=== PATIENT | female | born 1940 | race Caucasian/White ===

== ENCOUNTER 2018-06-21 08:12 | Inpatient (IN) | payer MEDICARE, BC ==
[2018-06-21] VITALS (42 sets, daily range): BP systolic 56–155; BP diastolic 35–79; BMI 27.3
[~2018-06-21] VITALS: Ht 160 cm; Wt 80.9 kg
--- NOTE | ~2018-06-21 | HEMODYNAMI ---
PATIENT:LAZARO SUAREZ MEDICAL RECORD: [id number] : 38 LOCATION:D.CAT ADMISSION DATE: 06/21/18 Generatedon:06/21/201813:02 Patient name: LAZARO SUAREZ Patient #: [id number] SSN: : 1940 Date of study: 06/21/2018 Page: Of Hemodynamic Procedure Report Patient Data Patient Demographics Procedure consent was obtained First Name: LAZARO Gender: Female Last Name: DANIELA : 1940 Middle Initial: S Age: 77 year(s) Patient #: [id number] Race: Unknown Additional ID: [id number] Contact details [address]: [address] [place] [address] [place] State: [place] City: [facility] Zip code: [address] Past Medical History Allergies: No known allergies Admission Admission Data Admission Date: 06/21/2018 Admission Time: 8:12 Weight (lbs.): 167.55 Weight (kg.): 76 Lab Results Lab Result Date: 06/21/2018 Lab Result Time: 0:00 Biochemistry Name Units Result Min Max BUN mg/dl 16 --(---*)-- 7 18 Creatinine mg/dl 0.9 --(-*--)-- 0.6 1.3 CBC Name Units Result Min Max Hemoglobin g/dl 11.9 *-(----)-- 13.5 17.5 Procedure Procedure Types Cath Procedure Diagnostic Procedure C [facility] w/Coronaries Sedation Charges Moderate Sedation up to 15 minutes PCI Procedure Coronary Stent Coronary Stent Initial Coronary Stent Additional Procedure Description Procedure Date Procedure Date: 06/21/2018 Procedure Start Time: 12:36 Procedure End Time: 13:02 Procedure Staff Name Function Clayton Cameron MD Performing Physician Anuja Guerrero RT Monitor Connor Ward RN Nurse Ga Puga RT Scrub Ivon Pineda RN Exercise Science Instructor Procedure Data Cath Procedure Fluoroscopy Diagnostic fluoroscopy Total fluoroscopy Time: 9.4 time: 9.4 min min Diagnostic fluoroscopy Total fluoroscopy dose: dose: 1108 mGy 1108 mGy Contrast Material Contrast Material Type Amount (ml) Isovue 300 194 Entry Location Entry Primary Successful Side Size Upsize Upsize Entry Closure Succes sful Closure Location (Fr) 1 (Fr) 2 (Fr) Remarks Device Remarks Femoral Right 5 Fr 6 Fr Exoseal artery Short Estimated blood loss: 10 ml Diagnostic catheters Device Type Used For End Catheter Placement MULTIPACK Pigtail 5 Fr LV Angiography catheter MULTIPACK JL 4.0 5Fr Left Coronary catheter Angiography MULTIPACK 3DRC 5Fr Right Coronary catheter Angiography Procedure Complications No complications Procedure Medications Medication Administration Route Dosage 0.9% NaCl I.V. 100 ml/hr Oxygen etCO2 Nasal cannula 2 l/min Lidocaine 2% added to field 20 Heparin Flush Bag added to field 2 bags (1000units/500ml NS) Versed I.V. 2 mg Fentanyl I.V. 50 mcg Versed I.V. 1 mg Heparin Bolus I.V. 4000 units Integrilin (Bolus I.V. 6.8 ml 2mg/ml) Versed I.V. 1 mg Fentanyl I.V. 50 mcg Hemodynamics Rest HGB: 11.9 (g/dl) Heart Rate: 71 (bpm) Snapshots Pre Cath Intra NCS Post Cath Vital Signs Time Heart Resp SPO2 etCO2 NIBP (mmHg) Rhythm Pain Sedation Rate (ipm) (%) (mmHg) Status Level (bpm) 12:18:02 70 16 97 36 152/75(114) NSR 0 (11) 10(A) , No pain 12:22:20 65 14 97 32.7 148/74(117) NSR 0 (11) 10(A) , No pain 12:26:36 67 18 100 32.7 146/75(97) NSR 0 (11) 10(A) , No pain 12:30:54 70 11 97 33 127/69(92) NSR 0 (11) 10(A) , No pain 12:35:06 63 12 97 34.1 134/66(98) NSR 0 (11) 10(A) , No pain 12:39:20 68 14 96 13.4 126/69(100) NSR 0 (11) 10(A) , No pain 12:43:32 63 13 97 34.2 135/67(94) NSR 0 (11) 10(A) , No pain 12:47:48 67 15 97 13.4 132/62(93) NSR 0 (11) 10(A) , No pain 12:52:02 66 14 98 13.4 136/69(104) NSR 0 (11) 10(A) , No pain 12:56:14 66 11 98 28.1 150/76(119) NSR 0 (11) 10(A) , No pain 13:00:30 76 11 98 11.1 154/82(124) NSR 0 (11) 10(A) , No pain Medications Time Medication Route Dose Verified Delivered Reason Notes Effectiveness by by 12:25:56 0.9% NaCl I.V. 100 Clayton Ivon used for ml/hr Nisha Pineda global head advertiser solutions 12:26:05 Oxygen etCO2 2 Clayton Ivon used for Nasal l/min Nisha Pineda procedure cannula RN 12:26:10 Lidocaine 2% added 20ml Clayton Clayton for local to vial Nisha Cameron MD anesthetic field 12:26:16 Heparin Flush added 2 Clayton Clayton used for Bag to bags Nihsa Cameron MD procedure (1000units/500ml field NS) 12:32:25 Versed I.V. 2 mg Clayton Ivon for sedation Nisha Pineda RN 12:32:32 Fentanyl I.V. 50 Clayton Ivon for sedation mcg Nisha Pineda RN 12:38:14 Versed I.V. 1 mg Clayton Ivon for sedation Nisha Pineda RN 12:42:50 Integrilin I.V. 6.8 Clayton Ivon for waste d (Bolus 2mg/ml) ml Nisha Pineda anticoagulation 3.8mL RN 12:42:50 Heparin Bolus I.V. 4000 Clayton Ivon for verif ied units Nisha Pineda anticoagulation with Dr. GORDY Cameron 12:44:55 Versed I.V. 1 mg Clayton Ivon for sedation Nisha Pineda RN 12:54:52 Fentanyl I.V. 50 Clayton Ivon for sedation mcg Nisha Pineda funeral home makeup artist Log Time Note 11:45:22 Time tracking: Call back (After hours or weekends) 11:45:28 Plan of Care:Hemodynamics will remain stable., Cardiac rhythm will remain stable., Comfort level will be maintained., Respiratory function will remain adequate., Patient/ family verbilizes understanding of procedure., Procedure tolerated without complication., Recovers from procedure without complications.. 11:58:41 Anuja Counts RT(R) sent for patient. Start room use. 12:05:04 Lab Result : BUN 16 mg/dl 12:05:04 Lab Result : Creatinine 0.9 mg/dl 12:05:04 Lab Result : Hemoglobin 11.9 g/dl 12:05:11 Patient Weight : 167.55 lbs 12:10:52 Patient received from ED to CCL 2 Alert and oriented. Tansferred to table in Supine position. 12:10:53 Warm blankets applied, and christine hugger turned on for patient comfort. 12:10:53 Correct patient and procedure confirmed by team. 12:10:54 Signed procedure consent form obtained from patient. 12:10:55 ECG and BP/O2 sat monitors applied to patient. 12:14:45 H&P Date Dictated: 06/21/2018 Within 30 days and on chart., H&P Addendum completed by physician on day of procedure. (MUST COMPLETE FOR ALL OUTPATIENTS). 12:14:48 Pre-procedure instructions explained to patient. 12:14:53 Family in waiting room. 12:14:55 Patient NPO since Midnight. 12:15:02 Patient allergic to No known allergies 12:15:07 Is the patient allergic to Iodine/contrast media? No. 12:16:33 Is patient on blood thinner?No 12:16:35 Patient diabetic? No. 12:16:39 Snore? Yes 12:16:40 Sleep apnea? No 12:16:46 Dentures? No ? 12:16:50 Vital chart was started 12:16:53 Baseline sample Acquired. 12:16:57 Rhythm: sinus rhythm 12:16:59 Full Disclosure recording started 12:17:06 Lab results completed and on chart. 12:17:10 Right groin area was prepped with chlora-prep and draped in sterile fashion 12:17:11 Alarms reviewed by R. N. 12:17:12 Sharps counted by scrub and verified by R.N. 12:25:08 Deviated septum? No 12:25:11 Opens mouth fully? Yes 12:25:12 Sticks out tongue? Yes 12:25:15 Airway obstruction? No ? 12:25:20 Previous problem with sedation/anesthesia? Yes Nausea 12:25:56 0.9% NaCl 100 ml/hr I.V. was administered by Ivon Pineda RN; used for procedure; 12:26:04 Pre procedure: right dorsailis pedis pulse 2+ Normal; easily identifiable; not easily obliterated 12:26:05 Oxygen 2 l/min etCO2 Nasal cannula was administered by Ivon Pineda RN; used for procedure; 12:26:05 Modified Robert's test Ulnar > 7 seconds. 12:26:10 Lidocaine 2% 20ml vial added to field was administered by Clayton Cameron MD; for local anesthetic; 12:26:12 Patient pain scale 0/10 ?. 12:26:16 Heparin Flush Bag (1000units/500ml NS) 2 bags added to field was administered by Clayton Cameron MD; used for procedure; 12:26:27 IV patent on arrival in left forearm with 0.9% NaCl at KVO. 12:26:34 Use device set Femoral Dx 12:26:35 ACIST Syringe (11700) opened to sterile field. 12:26:35 Bag Decanter (2002S) opened to sterile field. 12:26:35 Medline Cath Pack ([id number]) opened to sterile field. 12:26:36 DIAGNOSTIC WIRE .035 260cm J wire (062007) opened to sterile field. 12:26:40 ACIST Hand Control (57823) opened to sterile field. 12:26:40 ACIST Manifold (67613) opened to sterile field. 12:26:41 DIAGNOSTIC Multipack 5Fr catheter set (OH6195) opened to sterile field. 12:26:41 Tegaderm 4 x 4 (1626W) opened to sterile field. 12:26:42 SHEATH 5FR Bethel (IFU660) opened to sterile field. 12:28:45 Zero performed for pressure channel P1 12:31:37 Final Timeout: patient, procedure, and site verified with staff and physician. All members of the team are in agreement. 12:31:41 Right groin site verified by team. 12:31:43 Physical assessment completed. ASA score P 2 - A patient with mild systemic disease as per Clayton Cameron MD. 12:31:48 Sedation plan: IV Moderate Sedation Medication:Versed, Fentanyl 12:32:25 Versed 2 mg I.V. was administered by Ivon Pineda RN; for sedation; 12:32:32 Fentanyl 50 mcg I.V. was administered by Ivon Pineda RN; for sedation; 12:36:13 Procedure started. 12:36:19 Local anesthetic to right femoral artery with Lidocaine 2% by Clayton Cameron MD.INITIAL ACCESS ONLY 12:36:37 A 5 Fr sheath was inserted into the Right Femoral artery 12:37:05 A MULTIPACK Pigtail 5 Fr catheter was advanced over the wire and used for LV Angiography. 12:38:14 Versed 1 mg I.V. was administered by Ivon Pineda RN; for sedation; 12:38:20 LV gram done using DEL CASTILLO 12:38:24 EF : 60 % 12:38:30 Injector settings: Ml/sec: 10, Volume: 20, 12:38:31 LV hemodynamics recorded. 12:38:36 Catheter removed. 12:38:48 A MULTIPACK JL 4.0 5Fr catheter was advanced over the wire and used for Left Coronary Angiography. 12:39:21 Catheter removed. 12:39:38 A MULTIPACK 3DRC 5Fr catheter was advanced over the wire and used for Right Coronary Angiography. 12:40:09 Use device set [facility] PCI 12:40:11 SHEATH 6FR [place] (ZFI546) opened to sterile field. 12:40:15 INFLATOR Merit BasixCompak (NO8890) opened to sterile field. 12:41:54 Sheath upsized to a 6 Fr Short. 12:42:07 6 Fr HS II SH guide catheter was inserted over the wire 12:42:47 ZAHIDA wire advanced. 12:42:50 Heparin Bolus 4000 units I.V. was administered by Ivon Pineda RN; for anticoagulation; verified with Dr. Cameron 12:42:50 Integrilin (Bolus 2mg/ml) 6.8 ml I.V. was administered by Ivon Pineda RN; for anticoagulation; wasted 3.8mL 12:43:59 ZAHIDA XT J 300cm guide wire ([id number]) opened to sterile field. 12:44:55 Versed 1 mg I.V. was administered by Ivon Pineda RN; for sedation; 12:45:47 ATTEMPT TO CROSS LESION IN RCA UNSUCCESSFUL. 12:45:50 Wire removed. unable to cross lesion. 12:46:02 Guide catheter removed. 12:46:21 6 Fr XBLAD 3.5 guide catheter was inserted over the wire 12:46:45 CHOICE PT ES wire advanced. 12:46:49 CHOICE PT Extra Support 182cm wire ([id number]) opened to sterile field. 12:48:59 The PRIYA RX 2.5 x 12 stent ([id number]) was advanced then removed because of failure to cross lesion 12:50:11 Inflate balloon Inflation number: 1 A EUPHORA 3.0 x 20 Balloon ([id number]) was prepped and advanced across the Mid LAD, then inflated to 9 MARGOTH for 0:05 (min:sec). 12:50:29 Inflation number: 2 The EUPHORA 3.0 x 20 Balloon ([id number]) was reinflated across the Mid LAD, to 15 MARGOTH for 0:10 (min:sec). 12:50:38 Inflation number: 3 The EUPHORA 3.0 x 20 Balloon ([id number]) was reinflated across the Mid LAD, to 15 MARGOTH for 0:03 (min:sec). 12:51:06 Balloon removed over the wire. 12:51:54 Place stent Inflation Number: 4 A PRIYA RX 2.5 x 12 stent ([id number]) was prepped and advanced across the Mid LAD. The stent was deployed at 13 MARGOTH for 0:05 (min:sec). 12:52:26 Stent catheter was removed intact over wire. 12:52:43 CHOICE PT Extra Support 182cm wire ([id number]) opened to sterile field. 12:53:03 NEW CHOICE PT ES TO DIAG wire advanced. 12:54:06 Inflation number: 1 The stent balloon was then re-inflated across the 1st Diag to 11 MARGOTH for 0:06 (min:sec). 12:54:52 Fentanyl 50 mcg I.V. was administered by Ivon Pineda RN; for sedation; 12:55:17 Stent catheter was removed intact over wire. 12:56:24 Place stent Inflation Number: 2 A PRIYA RX 2.5 x 15 stent ([id number]) was prepped and advanced across the 1st Diag. The stent was deployed at 13 MARGOTH for 0:08 (min:sec). 12:56:38 Stent catheter was removed intact over wire. 12:58:21 Place stent Inflation Number: 5 A PRIYA RX 3.0 x 18 stent ([id number]) was prepped and advanced across the Mid LAD. The stent was deployed at 17 MARGOTH for 0:07 (min:sec). 12:58:41 Stent catheter was removed intact over wire. 12:58:42 Wire removed. 12:58:42 Guide catheter removed. 12:58:50 Sheath removed intact; hemostasis achieved with Exoseal to the Right Femoral artery. 12:58:51 Procedure ended.(Physican Out) 12:58:59 Fluoroscopy time 09.40 minutes. 12:59:04 Flurop Dose total: 1108 12:59:04 Fluoroscopy dose: 1108 mGy 12:59:11 Contrast amount:Isovue 300 194ml. 12:59:13 Sharps counted by scrub and verified by R.N. 12:59:14 Insertion/operative site no bleeding no hematoma. 12:59:17 Post-op/insertion site Right Femoral artery dressed using a 4 x 4 and Tegaderm. 12:59:20 Post right femoral artery:stable, clean and dry 12:59:21 Post Procedure Pulses reassessed and unchanged 12:59:24 Post-procedure physical assessment completed. ASA score P 2 - A patient with mild systemic disease as per Clayton Cameron MD. 12:59:30 Post procedure rhythm: unchanged. 12:59:56 Estimated blood loss: 10 ml 12:59:57 Post procedure instruction explained to patient.Patient verbalizes understanding. 12:59:57 Patient needs reinforcement of post procedure teaching. 13:00:34 Procedure type changed to Cath procedure, Diagnostic procedure, LHC, LHC w/Coronaries, Sedation Charges, Moderate Sedation up to 15 minutes, PCI procedure, Coronary Stent, Coronary Stent Initial, Coronary Stent Additional 13:00:37 See physician's report for complete and final results. 13:00:50 Procedure and supply charges have been captured, reviewed, submitted and are correct. 13:00:59 EXOSEAL 6Fr (EX600) opened to sterile field. 13:01:38 Procedure Complication : No complications 13:02:12 Vital chart was stopped 13:02:14 Report given to Pre/Post Procedure Room. 13:02:16 Patient transfered to Pre/Post Procedure Room with Stretcher. 13:02:23 Procedure ended. 13:02:23 Full Disclosure recording stopped 13:02:30 End room use (Document Last) Intervention Summary Intervention Notes Time ActionType Lesion and Equipment Used Action# Pressure Duration Attributes 12:48:59 Discard PRIYA RX 2.5 x Stent 12 stent ([id number]) 12:50:11 Inflate Mid LAD EUPHORA 3.0 x 1 9 00:05 balloon 20 Balloon ([id number]) 12:50:29 Reinflate Mid LAD EUPHORA 3.0 x 2 15 00:10 balloon 20 Balloon ([id number]) 12:50:38 Reinflate Mid LAD EUPHORA 3.0 x 3 15 00:03 balloon 20 Balloon ([id number]) 12:51:54 Place stent Mid LAD PRIYA RX 2.5 x 4 13 00:05 12 stent ([id number]) 12:54:06 Reinflate 1st Diag PRIYA RX 2.5 x 1 11 00:06 stent 12 stent balloon ([id number]) 12:56:24 Place stent 1st Diag PRIYA RX 2.5 x 2 13 00:08 15 stent ([id number]) 12:58:21 Place stent Mid LAD PRIYA RX 3.0 x 5 17 00:08 18 stent ([id number]) Device Usage Item Name Manufacture Quantity Catalog Number [facility] Part Current M inimal Lot# / Charge Number Stock Stock Serial# Code ACIST Syringe Acist 1 48568 483975 745289 383241 2 0 (01995) Medical Systems Inc Bag Decanter Microtek 1 246617 38263 826838 5 () Medical Inc. Medline Cath Medline 1 [id number] 057716 75393 841914 5 Pack ([id number]) DIAGNOSTIC [facility] [place] 1 043347 064522 372120 150874 3 0 WIRE .035 260cm J wire (039147) ACIST Hand Acist 1 12189 149875 530944 941057 5 Control Medical (46536) Systems Inc ACIST Manifold Acist 1 53283 738001 238215 559960 5 (70335) Medical Systems Inc DIAGNOSTIC Cardinal 1 AC1760 287246 23225 131604 3 0 Multipack 5Fr Health catheter set (DR8504) Tegaderm 4 x 4 3M 1 1626W 164239 885755 927632 5 (1626W) SHEATH 5FR Terumo 1 GEP474 298239 635616 814775 5 [place] (NFI346) MULTIPACK Cardinal 1 507672 5 Pigtail 5 Fr Health catheter MULTIPACK JL Cardinal 1 153492 5 4.0 5Fr Health catheter MULTIPACK 3DRC Cardinal 1 395380 5 5Fr catheter Health SHEATH 6FR Terumo 1 AWA656 797744 038861 519008 4 0 Bethel (AHQ362) INFLATOR Merit Merit 1 EM2062 826639 593201 766976 1 5 [facility] (SO7751) FIELDER XT J Fregoso 1 [id number] 947393 434209 820857 5 300cm guide Vascular wire ([id number]) CHOICE PT Revere 2 [id number] 487837 513202 717646 5 Extra Support Scientific 182cm wire ([id number]) PRIYA RX 2.5 x Medtronic 1 [id number] 022171 7235266 252697 5 [id number] 12 stent ([id number]) EUPHORA 3.0 x Medtronic 1 [id number] 462239 126268 442720 5 [id number] 20 Balloon ([id number]) PRIYA RX 2.5 x Medtronic 1 [id number] 649860 5285729 465728 5 [id number] 15 stent ([id number]) PRIYA RX 3.0 x Medtronic 1 [id number] 258639 7710668 810345 5 [id number] 18 stent ([id number]) EXOSEAL 6Fr Cardinal 1 EX600 484436 343826 532979 1 0 (EX600) Health Signature Audit [place] Stage Time Signature Unsigned Intra-Procedure 06/21/2018 Anuja 1:02:46 PM Counts RT(R) Signatures Monitor : Anuja Signature : Counts RT Date : Time : [id number] [facility] [place] [address]
[~2018-06-21 08:12] MED LIST: ACCUPRIL20 MG PO; BAYER CHEWABLE81 MG PO; CALAN SR240 MG PO; CALCIUM 600 +1 EAC3 PO; FISH OIL 1,0001 CA1 PO; LASIX40 MG PO; MACRODANTIN50 MG PO; NIACIN500 MG PO; OXYBUTYNIN CHLOR5 MG PO; PRAVACHOL20 MG PO; PRILOSEC20 MG PO; PROBIOTIC1 EAC1 PO; TYLENOL ARTHRITIS PO; VITAMIN D31000 UNIT PO; [UNRECOGNIZED DRUG - REMARK] PO
[2018-06-21 10:29] LABS: ALBUMIN 3.3 g/dL (3.4-5.0); ANION GAP 10.8 mmol/L (8-16); BILIRUBIN - TOTAL 0.26 mg/dL (0.2-1.3); CALCIUM 9.3 mg/dL (8.5-10.1); CARBON DIOXIDE 28.2 mmol/L (21.0-32.0); CREATININE - SERUM 0.9 mg/dL (0.6-1.3); PROTEIN - SERUM 6.3 g/dL (6.4-8.2)
[2018-06-21 10:37] LABS: BASOPHILS 0.5 % (0-2); EOSINOPHILS 1.3 % (0-7); HEMATOCRIT 38.5 % (36.0-48.0); HEMOGLOBIN 11.9 g/dL (12-16); IMMATURE GRANULOCYTES 0.3 % (0-5); LYMPHOCYTES 40.4 % (15-50); MCH 27.4 pg (26.0-34.0); MCHC 30.9 g/dL (31.0-37.0); MCV 88.7 fL (80.0-100.0); MEAN PLATELET VOLUME 9.4 fL (7.4-10.4); MONOCYTES 8.6 % (2-11); NEUTROPHILS 48.9 % (40-80); PLATELET COUNT 147 10x3/uL (130-400); RBC 4.34 10x6/uL (4.00-5.40); RDW 14.1 % (11.5-14.5); WBC 3.8 10x3/uL (4.8-10.8)
[2018-06-21 10:46] LABS: MAGNESIUM - SERUM 2.1 mg/dL (1.8-2.4)
[2018-06-21 10:56] LABS: TROPONIN-I 0.763 ng/mL (0.000-0.060)
--- NOTE | 2018-06-21 13:02 | CN ---
PATIENT NAME:LAZARO GARCIA MEDICAL RECORD: [id number] : 38 LOCATION:D.CAT ADMIT DATE: ACCOUNT: [id number] CONSULTING PHYSICIAN: ÁLVARO MARCUM MD REFERRING PHYSICIAN: ÁLVARO MARCUM MD DATE OF CONSULTATION: 06/21/2018 CARDIOLOGY CONSULTATION DIAGNOSES: 1. Non-Q-wave myocardial infarction. 2. Hypertension. 3. Hyperlipidemia. 4. Coronary artery disease. HISTORY OF PRESENT ILLNESS: Ms. Garcia presents with back pain, minimal chest pain. Troponin is positive for non-Q-wave myocardial infarction. She continues to have the discomfort. Her EKG is with no significant ST-T abnormalities. PHYSICAL EXAMINATION: GENERAL APPEARANCE: Well-nourished, well-developed, appears stated age. Level of distress, comfortable. PSYCHIATRIC: Mental status, alert, normal affect. Orientation, oriented to time, place and person. EYES: Lids and conjunctiva, noninjected. No discharge, no pallor. ENT: Lips, teeth, gums, normal dentition. Oropharynx, no cyanosis, no pallor. NECK: Carotid arteries, bilateral normal upstroke, no bruits, no thrills. JUGULAR VEINS: No jugular venous pressure or distention. CERVICAL LYMPH NODES: Nontender, nonenlarged. THYROID: Not enlarged. Nontender. No nodules. LUNGS: Respiratory effort, unlabored. CHEST: Normal curvature. No thoracic deformity. No chest wall tenderness. Percussion, resonant. Auscultation, clear. No wheezes, no rales, no rhonchi. CARDIOVASCULAR: Precordial exam, nondisplaced. No heaves or pericardial thrills. Rate and rhythm, regular. Heart sounds, normal S1, normal S2. No S3, no gallop, no rub. Systolic murmur, not heard. Diastolic murmur, not heard. EXTREMITIES: No cyanosis, no edema. Peripheral pulses, full and equal in all extremities, except as noted. No bruits appreciated. ABDOMEN: Soft, nondistended. Normal aorta. No bruit. Nontender. No masses. Liver, nontender, no hepatomegaly. Spleen, nontender, no splenomegaly. MUSCULOSKELETAL: No joint tenderness. No joint swelling. No erythema. NEUROLOGICAL: Normal gait, normal strength, normal tone. SKIN: Warm and dry. OVERALL IMPRESSION: Anginal symptomatology with small increased troponin compatible with non-Q-wave myocardial infarction. We will proceed with coronary angiography. Further care depends on the findings of the angiography. TRANSINT:[id number] Voice Confirmation ID: [id number] DOCUMENT ID: [id number] CONSULT REPORT [id number] LAZAOR GARCIA JEFFREY MD at 1302 CC: [id number] DICTATION DATE: 06/21/18 1106 SERVICE ORDER DISPATCHER: 06/21/18 1252 [address] [place] [address]
--- NOTE | 2018-06-21 13:30 | NUR ---
PATIENT RESTING, VSS ON 2L NASAL CANNULA. RIGHT GROIN DRESSING IS CDI, NO BLEEDING OR HEMATOMA NOTED. NO C/O PAIN, NUMBNESS, OR TINGLING.
--- NOTE | 2018-06-21 14:00 | NUR ---
PATIENT STATES THAT SHE IS FEELING NAUSEOUS, BLOOD PRESSURE IS 60/33 ON MONITOR, HR 56. PATIENT PLACED IN [place] POSITION, RIGHT GROIN SHOWS NO SIGNS OF BLEEDING OR HEMATOMA. WILL CONTINUE TO MONITOR PATIENT.
--- NOTE | 2018-06-21 14:15 | NUR ---
SPOKE WITH PHYSICIAN REGARDING HYPOTENSION, WILL ORDER STAT H&H. RIGHT GROIN IS SLIGHTLY EDEMATOUS. FEMOSTOP APPLIED AT THIS TIME WITH PRESSURE AT 120. RIGHT POSTERIOR TIBIALIS PULSE DOPPLED. WILL CONTINUE TO MONITOR.
--- NOTE | 2018-06-21 14:30 | NUR ---
SPOKE WITH PHYSICIAN REGARDING ONGOING HYPOTENSION, PHYSICIAN STATES THAT HE WILL WAIT FOR THE HEMOGLOBIN AND HEMATOCRIT RESULTS BEFORE GIVING FURTHER ORDERS. RIGHT GROIN FEMOSTOP IN PLACE, NO NEW SIGNS OF BLEEDING OR HEMATOMA.
--- NOTE | 2018-06-21 14:40 | NUR ---
GAVE REPORT TO RN RECEIVING PATIENT IN ROOM 2302, ALL QUESTIONS ANSWERED. PATIENT TRANSPORTED VIA STRETCHER TO ROOM 2302, WITH PATIENT, ALL BELONGINGS WITH PATIENT.
[2018-06-21 14:49] LABS: HEMOGLOBIN 10.7 g/dL (12-16)
--- NOTE | 2018-06-21 14:55 | NUR ---
RECIEVED PT TO UNIT FROM SITE SPECIALIST STAFF AT THIS TIME VIA BED. PT LETHARGIC, ABLE TO ANSWER QUESTIONS AND STATE NEEDS AND FOLLOW COMMANDS. BP 56/44 HEART RATE 72. PER DR MARCUM ADMIN 2U PRBC, GIVE 1L NS BOLUS NS, AND START DOPAMINE AT 10 MCG/KG/MIN. ALSO RECHECK H&H 45 MIN AFTER COMPLETE OF 2 U RBC ADMIN. WILL CONTINUE PLAN OF CARE.
--- NOTE | 2018-06-21 15:36 | NUR ---
PER DR MARCUM, CONSULT SURGERY FOR CVL PLACEMENT SINCE PT IS ON DOPAMINE AND RECIEVING BOLUS AND BLOOD. SPOKE WITH DR MEZA, STATED HE WAS ON HIS WAY TO SEE PT. ALSO SPOKE WITH PTS , UPDATES GIVEN. HE STATED "DO WHAT YOU CAN TO HELP HER." CONSENTS RECIEVED FOR CVL PLACEMENT. PTS DENIES ANY QUESTIONS OR CONCERNS. ALSO AT THIS TIME BUCHANAN PLACED PER ORDERS FOR ACCURATE I&O, YELLOW URINE FLOWING INTO CLOSED CONTAINER. DOPAMINE TITRATED TO ORDER. WILL CONTINUE PLAN OF CARE.
--- NOTE | 2018-06-21 17:06 | NUR ---
PTS AT BEDSIDE VISITING WITH PT. DENIES ANY QUESTIONS OR CONCERNS. FEMSTOP PRESSURE DECREASED TO ORDER. WILL CONTINUE PLAN OF CARE.
--- NOTE | 2018-06-21 17:43 | NUR ---
PER DR MARCUM, CONSULT DR HEBERT. DR HEBERT NOTIFIED OF CONSULT, ORDERS RECIEVED. STATED HE WOULD BE BY TO SEE PT SHORTLY. WILL CONTINUE PLAN OF CARE.
[2018-06-21 17:56] LABS: HEMOGLOBIN 14.3 g/dL (12-16)
--- NOTE | 2018-06-21 18:00 | NUR ---
PER PAVER, PTS EF IS 50%
--- NOTE | 2018-06-21 19:10 | NUR ---
DR HEBERT ON UNIT, UPDATED ON PT STATUS, ORDERS RECEIVED.
[2018-06-21 19:57] LABS: TROPONIN-I 4.292 ng/mL (0.000-0.060)
--- NOTE | 2018-06-21 20:00 | NUR ---
DR AGUILERA ON UNIT, UPDATED REGARDING PT, ORDERS RECEIVED.
--- NOTE | 2018-06-21 21:15 | NUR ---
DR HEBERT NOTIFIED OF ABG RESULTS, ORDERS RECEIVED.
--- NOTE | 2018-06-21 21:50 | NUR ---
FEMSTOP REMOVED, RT GROIN SITE CDI, SOFT TO PALP, WILL MONITOR CLOSELY.
--- NOTE | 2018-06-21 23:15 | NUR ---
REASSESSMENT PER FLOWSHEET, REMAINS IN SR, WILL CONT TO ATTEMPT TO WEAN DOPAMINE, PPP, PT ABLE TO ANSWER QUESTIONS APPROPRIATELY. INCONTINENT OF MODERATE AMT OF LOOSE BROWN STOOL, COMPLETE LINEN CHANGE DONE AND PERICARE PROVIDED.
--- NOTE | 2018-06-21 23:48 | NUR ---
CT CHEST WITH PE PROTOCOL AND CT OF ABDOMEN AND PELVIS RESULTS CALLED TO DR HEBERT REQUESTED. NO FURTHER ORDERS AT THIS TIME.
[2018-06-22] VITALS (46 sets, daily range): BP systolic 86–151; BP diastolic 48–95
--- NOTE | 2018-06-22 01:50 | NUR ---
PT POSITIONED FOR COMFORT SUPPORTED WITH PILLOWS, RT GROIN SITE REMAINS SOFT TO PALP AND NONTENDER. VSS
--- NOTE | 2018-06-22 03:10 | NUR ---
REASSESSMENT PER FLOWSHEET, AM CXR COMPLETED WITHOUT DIFFICULTY. VSS
--- NOTE | 2018-06-22 05:02 | NUR ---
ABG RESULTS REVIEWED, PT REMAINS ON 40LPM 60% FIO2, VSS, DOPAMINE REMAINS AT 5 MCG/KG/MIN PER MD ORDER, WILL CONT TO MONITOR.
[2018-06-22 05:36] LABS: BASOPHILS 0 % (0-2); EOSINOPHILS 0 % (0-7); HEMATOCRIT 39.6 % (36.0-48.0); HEMOGLOBIN 12.6 g/dL (12-16); IMMATURE GRANULOCYTES 0.2 % (0-5); MCH 27.9 pg (26.0-34.0); MCHC 31.8 g/dL (31.0-37.0); MCV 87.8 fL (80.0-100.0); MEAN PLATELET VOLUME 9.7 fL (7.4-10.4); MONOCYTES 5.4 % (2-11); NEUTROPHILS 89.4 % (40-80); PLATELET COUNT 144 10x3/uL (130-400); RBC 4.51 10x6/uL (4.00-5.40); RDW 14.3 % (11.5-14.5)
[2018-06-22 05:40] LABS: WBC 13.1 10x3/uL (4.8-10.8)
[2018-06-22 06:20] LABS: ALBUMIN 2.7 g/dL (3.4-5.0); ANION GAP 14.2 mmol/L (8-16); BILIRUBIN - TOTAL 0.4 mg/dL (0.2-1.3); CALCIUM 8.1 mg/dL (8.5-10.1); CARBON DIOXIDE 24.2 mmol/L (21.0-32.0); MAGNESIUM - SERUM 2.5 mg/dL (1.8-2.4); POTASSIUM - SERUM 3.4 mmol/L (3.5-5.1); PROTEIN - SERUM 5.1 g/dL (6.4-8.2)
[2018-06-22 06:21] LABS: CREATININE - SERUM 1.2 mg/dL (0.6-1.3); TROPONIN-I 3.133 ng/mL (0.000-0.060)
--- NOTE | 2018-06-22 08:21 | NUR ---
LYING IN BED AWAKE AT THIS TIME. PT SLEEPY, BUT ORIENTED. AT BEDSIDE. UPDATES PROVIDED. NO ACUTE DISTRESS NOTED. RT GROIN SITE WDL, NO EDEMA, DRAINAGE, DISCOLORATION, DRESSING CDI. WILL CONTINUE PLAN OF CARE.
--- NOTE | 2018-06-22 09:18 | NUR ---
DR BRAY NOTIFIED OF CONSULT, STATED SHE WILL SEE PT LATER TODAY.
[2018-06-22 09:23] LABS: AMYLASE - SERUM 63 U/L (25-115); LIPASE 79 U/L (73-393)
--- NOTE | 2018-06-22 09:25 | NUR ---
PT COMPLAINT OF CHEST PAIN, TROPONIN HAD ALREADY BEEN RECENTLY DRAWN, ORDERS RECIEVED. EKG OBTAINED. SHOWED [address] ELEVATION - PREVIOUS EKG HAD SHOWED SINUS RHYTHM WITHOUT STATING ST ELEVATION. DR MARCUM NOTIFIED. ORDERS RECEIVED. WILL CONTINUE PLAN OF CARE.
--- NOTE | 2018-06-22 10:12 | NUR ---
BANQUET DIRECTOR ROUNDED ON PT, GUNNER'S MATE M IN ROOM. PTS AT BEDSIDE. QUESTIONS ANSWERED BY BANQUET DIRECTOR. NO NEW ORDERS RECIEVED. WILL CONTINUE PLAN OF CARE.
--- NOTE | 2018-06-22 11:59 | NUR ---
PER DR AGUILERA, OKAY TO TITRATE DIPAMIN DOWN.
--- NOTE | 2018-06-22 13:53 | NUR ---
O2 AT 3L NC NOW FROM 5L. NO ACUTE DISTRESS NOTED. TOLERTING WELL, OXYGEN SATURATION AT 96%. PT ALERT AND ORIENTED. ASSISTED WITH REPOSITIONING Q2H. WILL CONTINUE PLAN OF CARE.
--- NOTE | 2018-06-22 14:23 | NUR ---
LYING IN BED RESTING AT THIS TIME. RESPIRATIONS STEADY AND UNLABORED. CALL LIGHT IN REACH. WILL CONTINUE PLAN OF CARE.
--- NOTE | 2018-06-22 15:57 | NUR ---
PT COMPLAINT OF CHEST PAIN STATING, "IT HURTS WORSE THAN BEFORE, PLEASE TELL ME I AM NOT HAVING A HEART ATTACK." EKG OBTAINED, SHOWS SINUS RHYTHM RATE 93. DR YEBOAH, ORDER RECIEVED. WILL CONTINUE PLAN OF CARE.
--- NOTE | 2018-06-22 17:10 | NUR ---
GI PHYSICIAN HAS SEEN PT, QUESTIONS AND CONCERNS ADRESSED. ORDERS RECIEVED. NO ACUTE DISTRESS NOTED. WILL CONTINUE PLAN OF CARE.
--- NOTE | 2018-06-22 19:15 | NUR ---
REPORT RECEIVED, CARE ASSUMED. PT IS RESTING IN BED QUIETLY AT THIS TIME. INITIAL ASSESSMENT COMPLETED, SEE FLOWSHEET. NO SIGNS OF ACUTE DISTRESS. WILL CONTINUE TO MONITOR.
--- NOTE | 2018-06-22 21:14 | NUR ---
PT RESTING QUIETLY IN BED AT THIS TIME. PT HAS VOICED NO NEEDS. VSS. NO SIGNS OF ACUTE DISTRESS. WILL CONTINUE TO MONITOR.
--- NOTE | 2018-06-22 23:14 | NUR ---
REASSESSMENT COMPLETED, SEE FLOWSHEET. NO ACUTE CHANGES NOTED. PT RESTING IN BED WITH EYES CLOSED. NO SIGNS OF ACUTE DISTRESS. WILL CONTINUE TO MONITOR.
[2018-06-23] VITALS (12 sets, daily range): BP systolic 85–134; BP diastolic 63–109; Ht 160 cm; Wt 80.9 kg
--- NOTE | 2018-06-23 01:13 | NUR ---
PT RESTING IN BED. MONITORS SHOW AFIB WITH RATE OF 140'S-160'S. DR CABELLO, ORDERS RECEIVED. PT REPOSITIONED IN BED TO TRY TO HELP HER BE MORE COMFORTABLE. PT VOICED NO FURTHER NEEDS. WILL CONTINUE TO MONITOR.
--- NOTE | 2018-06-23 03:08 | NUR ---
PT RESTING IN BED, NO ACUTE CHANGES NOTED. MONITORS STILL SHOW HR IN THE 130'S-140'S. WILL CONTINUE TO MONITOR.
--- NOTE | 2018-06-23 05:13 | NUR ---
PT RESTING IN BED QUIETLY. NO ACUTE CHANGES NOTED. NO SIGNS OF ACUTE DISTRESS. WILL CONTINUE TO MONITOR.
--- NOTE | 2018-06-23 08:04 | NUR ---
BEDSIDE SHIFT REPORT RECEIVED AT THIS TIME. SHIFT ASSESSMENT COMPLETE PER FLOWSHEET. PT RESTING COMFORTABLY AT THIS TIME. DENIES ANY NEEDS. WILL CONTINUE TO MONITOR CLOSELY.
--- NOTE | 2018-06-23 09:00 | NUR ---
PT PRESENT AT THE BEDSIDE. UPDATE GIVEN. VSS, WILL MONITOR CLOSELY
--- NOTE | 2018-06-23 10:15 | NUR ---
DR. MARCUM BY TO SEE PT. XSFER ORDERS GIVEN. VSS, WILL CONTINUE TO MONITOR CLOSELY.
--- NOTE | 2018-06-23 12:20 | NUR ---
REPORT CALLED TO GORDY RICH AT THIS TIME.
--- NOTE | 2018-06-23 12:47 | NUR ---
PT TRANSFERRED TO 2118 AT THIS TIME VIA WHEELCHAIR. PATIENT BELONGINGS ( FLUTTER VALVE AND GLASSES) WERE TRANSFERRED WITH PATIENT. NOTIFIED OF ROOM CHANGE. PT ASSISTED INTO NEW BED WITH NO COMPLICATIONS. MED AT THE BEDSIDE BY LAYLA.
--- NOTE | 2018-06-23 12:51 | NUR ---
TRANSFER FROM ICU BY W/C. OREINTED TO ROOM. CALL LIGHT IN REACH. WILL CONT. PLAN OF CARE.
[2018-06-23 16:23] LABS: BASOPHILS 0.1 % (0-2); HEMATOCRIT 34.5 % (36.0-48.0); HEMOGLOBIN 10.9 g/dL (12-16); IMMATURE GRANULOCYTES 0.3 % (0-5); LYMPHOCYTES 18.6 % (15-50); MCH 28.2 pg (26.0-34.0); MCHC 31.6 g/dL (31.0-37.0); MCV 89.1 fL (80.0-100.0); MEAN PLATELET VOLUME 9.9 fL (7.4-10.4); MONOCYTES 8.8 % (2-11); NEUTROPHILS 71.2 % (40-80); PLATELET COUNT 108 10x3/uL (130-400); RBC 3.87 10x6/uL (4.00-5.40); RDW 14.9 % (11.5-14.5); WBC 8.8 10x3/uL (4.8-10.8)
--- NOTE | 2018-06-23 16:35 | NUR ---
COVERTED TO SR. HR 94.
[2018-06-23 16:54] LABS: ALBUMIN 2.5 g/dL (3.4-5.0); ANION GAP 16.3 mmol/L (8-16); BILIRUBIN - TOTAL 0.34 mg/dL (0.2-1.3); CALCIUM 8.7 mg/dL (8.5-10.1); CARBON DIOXIDE 21.8 mmol/L (21.0-32.0); MAGNESIUM - SERUM 2.1 mg/dL (1.8-2.4); PHOSPHOROUS 2.1 mg/dL (2.5-4.9); POTASSIUM - SERUM 4.1 mmol/L (3.5-5.1); PROTEIN - SERUM 4.9 g/dL (6.4-8.2)
[2018-06-23 16:55] LABS: CREATININE - SERUM 0.8 mg/dL (0.6-1.3)
--- NOTE | 2018-06-23 19:58 | NUR ---
RESUMED CARE OF PT, LYING IN BED RESPIRATIONS EVEN AND UNLABORED ON ROOM AIR. RIGHT CHEST CVL INFUSING NS @ 100. 117 UCAF ON TELEMETRY. PLAN OF CARE DISCUSSED, NPO AFTER MIDNIGHT FOR MRI TOMORROW. CALL LIGHT IN REACH. WILL CONTINUE TO MONITOR. SEE NURSE ASSESSMENT.
[2018-06-24] VITALS: BP 107/59
[2018-06-24 05:08] VITALS: BP 133/56
[2018-06-24 05:59] LABS: BASOPHILS 0.2 % (0-2); EOSINOPHILS 1.5 % (0-7); HEMATOCRIT 34.6 % (36.0-48.0); HEMOGLOBIN 10.9 g/dL (12-16); IMMATURE GRANULOCYTES 0.1 % (0-5); LYMPHOCYTES 24.5 % (15-50); MCH 27.9 pg (26.0-34.0); MCHC 31.5 g/dL (31.0-37.0); MCV 88.7 fL (80.0-100.0); MEAN PLATELET VOLUME 9.9 fL (7.4-10.4); MONOCYTES 7.9 % (2-11); NEUTROPHILS 65.8 % (40-80); PLATELET COUNT 110 10x3/uL (130-400); RDW 14.8 % (11.5-14.5); WBC 8.2 10x3/uL (4.8-10.8)
[2018-06-24 06:12] LABS: % SATURATION 10 % (15-55); IRON 28 ug/dl (35-150); TOTAL IRON BIND CAPACITY 261 ug/dl (260-445); UNSAT IRON BIND CAPACITY 233 ug/dl (150-375)
[2018-06-24 06:46] LABS: ALBUMIN 2.3 g/dL (3.4-5.0); ALKALINE PHOSPHATASE 45 U/L (46-116); ALT (SGPT) 43 U/L (10-68); BILIRUBIN - TOTAL 0.39 mg/dL (0.2-1.3); CALC OSMOLALITY 289 mosm/kg (275-300); CALCIUM 8.6 mg/dL (8.5-10.1); CARBON DIOXIDE 24.3 mmol/L (21.0-32.0); CHLORIDE - SERUM 112 mmol/L (98-107); CREATININE - SERUM 0.7 mg/dL (0.6-1.3); FERRITIN 28 ng/mL (3-244); GLUCOSE 77 mg/dL (74-106); MAGNESIUM - SERUM 2.1 mg/dL (1.8-2.4); PHOSPHOROUS 1.7 mg/dL (2.5-4.9); POTASSIUM - SERUM 3.9 mmol/L (3.5-5.1); PROTEIN - SERUM 4.9 g/dL (6.4-8.2); SODIUM 145 mmol/L (136-145); UREA NITROGEN 18 mg/dL (7-18); eGFR NON AFRICAN AMERICAN 86 mL/min (90-120)
[2018-06-24 06:48] LABS: TROPONIN-I 0.079 ng/mL (0.000-0.060)
--- NOTE | 2018-06-24 06:56 | NUR ---
NO CHANGES FROM PREVIOUS ASSESSMENT, CALL LIGHT IN REACH. WILL CONTINUE TO MONITOR.
--- NOTE | 2018-06-24 07:30 | NUR ---
RECEIVED PT IN BED AAO RESP UNLABORED SKIN W/D COLOR WNL NAD NOTED
[2018-06-24 09:08] VITALS: BP 122/66
[2018-06-24 12:48] VITALS: BP 115/64
--- NOTE | 2018-06-24 13:57 | EC ---
PATIENT:LAZARO SUAREZ DATE OF SERVICE: 06/21/18 SEX: F MEDICAL RECORD: [id number] DATE OF : 38 LOCATION:D.M2 D.211 AGE OF PATIENT: 77 ADMISSION DATE: 06/21/18 REFERRING PHYSICIAN: INTERPRETING PHYSICIAN: SLADE SOUSA MD ECHOCARDIOGRAM REPORT ECHO CHARGES 5 ECHO LIMITED Date: 06/22/18 CLINICAL DIAGNOSIS: PERICARDIAL FLUID ECHOCARDIOGRAPHIC MEASUREMENTS (adult normal given) AC root (d.<3.7cm) cm LV Septum d (<1.2 cm> cm Valve Excursion cm LV Septum (systole) cm Left Atria (s.<4.0cm> cm LVPW d(<1.2cm) cm RV (d.<2.3cm) cm LVPW (sytole) cm LV diastole(<5.6CM) cm MV E-F(>70mm/sec) cm LV systole cm LVOT Diameter cm MV exc.(>10mm) cm Est.ejection fraction (50-75%) % DOPPLER: LVIT cm/sec A cm/sec E cm/sec LA cm/sec RVSP 20.7 mmHg LVOT cm/sec AOP1/2T m/s Asc. Ao cm/sec RVOT cm/sec RA cm/sec PA cm/sec AV Gradient Peak mmHg AV Mean mmHg AV Area cm MV Gradient Peak mmHg MV Mean mmHg MV Area cm COMMENTS: Vessel Operator: Colby KAYE Lpn Medical Assistant: Lizzy Palmer TAPE# PACS Pericardial Effusion Y DATE OF SERVICE: 06/23/2018 This is a limited 2D to assess pericardial effusion. Grossly LVH appears present. LV internal dimensions are normal. Wall motion is normal. EF is greater than or equal to 55%. The aortic valve is tricuspid with good valve excursion. Left atrium grossly appears normal. Mitral valve shows no prolapse and adequate excursion. Right-sided chambers appear grossly normal. No evidence of any right-sided diastolic abnormalities. Mlvv-tn-shhgfnuy, mostly posterior, pericardial effusion is noted, this measures 0.8 to 1 cm. ECHOCARDIOGRAM REPORT [id number] LAZARO SUAREZ This is unchanged from previous 2D study yesterday. TRANSINT:[id number] Voice Confirmation ID: [id number] DOCUMENT ID: [id number] SLADE SOUSA MD at 1357 CC: [id number] DICTATION DATE: 06/23/18 0137 SPREADER BOX OPERATOR: 06/23/18 0753 ADM IN [facility] [address] [place] [id number]
[2018-06-24 16:40] VITALS: BP 114/47
[2018-06-24 20:00] VITALS: BP 143/83
--- NOTE | 2018-06-24 20:17 | NUR ---
RESUMED CARE OF PT, LYING IN BED RESPIRAITONS EVEN AND UNLABORED ON ROOM AIR. RIGHT CVL INFUSING NS @ 100. 80 CAF ON TELEMETRY. CALL LIGHT IN REACH, NO NEEDS VOICED AT THIS TIME. SEE NURSE ASSESSMENT.
[2018-06-25] VITALS: BP 104/58
[2018-06-25 04:00] VITALS: BP 126/70
--- NOTE | 2018-06-25 07:30 | NUR ---
ASSESSMENT COMPLETED. ALERT AND ORIENTED. TELEMETRY SHOWS CAF AT 60. IV TO RIGHT WRIST AND CVL TO RIGHT CHEST, SR UP WITH CALL LIGHT IN REACH, WILL MONITOR
--- NOTE | 2018-06-25 13:14 | OP ---
PATIENT NAME: LAZARO SUAREZ MEDICAL RECORD: [id number] :38 LOCATION:D.M2 D.2119 ADMISSION DATE:06/21/18 SURGEON: ÁLVARO MARCUM MD DATE OF OPERATION: 06/21/2018 PROCEDURES: 1. PTCA and stent, LAD. 2. PTCA and stent, LAD diagonal. 3. Left heart catheterization. 4. Selective coronary angiography. 5. Left ventriculogram. INDICATION: Angina and coronary artery disease. PROCEDURE IN DETAIL: After informed consent was obtained with detailed description of risks and benefits as well as alternative therapies, the patient elected to proceed with angiogram and angioplasty. The right femoral area was prepped and draped in normal sterile fashion. Right femoral artery was cannulated via modified Seldinger technique with placement of 6-[place] sheath. All catheters were exchanged through this sheath. FINDINGS: Left ventriculogram performed in standard 30-degree DEL [place]ST[place]O view reveals good cardiac wall motion throughout all segments. Overall ejection fraction estimated at 60%. SELECTIVE CORONARY ANGIOGRAPHY: 1. Left main is with no significant angiographic disease. 2. Left anterior descending has 95% stenosis at mid vessel and the diagonal as well has 95% stenosis. 3. Left circumflex has moderate irregularities, but no flow-limiting stenosis. 4. Right coronary has chronic total occlusion in the mid vessel. It fills via yysr-qg-zvmu and zfpru-qf-licl collaterals distally. I attempted PTCA and stent of the RCA. We could not traverse the total occlusion with any wire. We turned our attention to the LAD. We stented the LAD with a 2.5 x 12 and 3.0 x 15 [place] stents. Diagonal was addressed with a 2.5 x 15-mm Hidden[place] stent. Result was 0% residual. IMPRESSION: Successful PTCA and stent of the LAD and diagonal, both going from 95% initial stenosis to 0% residual. TRANSINT:[id number] Voice Confirmation ID: [id number] DOCUMENT ID: [id number] ÁLVARO MARCUM MD at 1314 CC: [id number] DICTATION DATE: 06/21/18 1303 REFINERY OPERATOR COKING: 06/21/18 1709 [place] [address]
[2018-06-25] MEDS ORDERED: XARELTO20 MG PO (14:05)
[2018-06-25] MEDS ORDERED: BETAPACE 120 M120 MG PO (14:06)
[2018-06-25] MEDS ORDERED: PLAVIX75 MG PO (14:06)
--- NOTE | 2018-06-25 14:06 | NUR ---
DR. MARCUM VISITED AND ORDERED THAT PT CAN EAT. TRAY ORDERED. WILL CONTINUE TO MONITOR.
[2018-06-25] MEDS ORDERED: LANOXIN125 MCG PO (14:08)
[2018-06-25] MEDS ORDERED: FLAGYL500 MG PO (14:09)
--- NOTE | 2018-06-25 14:36 | NUR ---
PT UP ON SIDE OF BED. DENIES ANY NEEDS. CALL LIGHT IN REACH
--- NOTE | 2018-06-25 16:19 | NUR ---
PT DISCHARGED. CVL AND IV DCD. INSTRUCTIONS GIVEN. TO PRIVATE CAR PER WHEELCHAIR
--- NOTE | 2018-06-25 17:29 | MORECARE ---
CASE MANAGEMENT DISCHARGE SUMMARY PATIENT: LAZARO SUAREZ UNIT: [id number] ADM DATE: 06/21/18 AGE: 77 : 39 SEX: F ROOM/BED: D.7113 AUTHOR: RAZA,DOC PHYSICIAN: REFERRING PHYSICIAN: ÁLVARO MARCUM MD DATE OF SERVICE: 06/25/18 Discharge Plan Patient Name: LAZARO SUAREZ Facility: [facility]:[place] : 1940 Planned Disposition: Home Anticipated Discharge Date: 06/25/18 Discharge Date: Expected LOS: 4 Initial Reviewer: [email or web address] Initial Review Date: 06/25/2018 Generated: 06/25/18 6:29 pm Comments DCP- Discharge Planning Updated by [email or web address]: Joe Stringer on 06/25/18 4:[address] Patient Name: LAZARO SUAREZ Admission Status: ER Accout number: [id number] Admission Date: 06-21-2018 : 1940 Admission Diagnosis:NON-ST ELEVATION (NSTEMI) MYOCARDIAL INFARCTION Attending: DOMINIC MARCUM Current LOS: 4 Anticipated DC Date: 06-25-2018 Planned Disposition: Home Primary Insurance: MEDICARE A & B Discharge Planning Comments: CM MET WITH PT IN ROOM TO DISCUSS DISCHARGE PLANNING AND NEEDS. PT REPORTS LIVING AT HOME INDEPENDENTLY WITH SPOUSE. PT HAS CANE, WALKER AND GRAB BARS IN BATHROOM AND SHOWER; MEDICAL EQUIPMENTPROVIDER IS [employer]. PT HAS NO OUTSIDE SERVICES ASSISTING IN THE HOME. CM DISCUSSED AVAILABILITY OF HOME HEALTH, REHAB SERVICES AND MEDICAL EQUIPMENT. PT DENIES DISCHARGE NEEDS, REPORTS HER SPOUSE WILL PICK HER UP FOR DISCHARGE HOME. IMPORTANT MESSAGE FROM MEDICARE PROVIDED AND EXPLAINED. PHARMACY TECHNOLOGY INSTRUCTOR NURSE NOTIFIED. Roller Turner: Joe Stringer DCPIA - Discharge Planning Initial Assessment Updated by [email or web address]: Joe Stringer on 06/25/18 5:20 pm * Is the patient Alert and Oriented? Yes * How many steps to enter\exit or inside your home? 3 W/RAIL * PCP DR. GUTIERREZ * Pharmacy [facility]. * Preadmission Environment Home with Family * ADLs Independent * Equipment Cane Grab Bars Walker * Other Equipment [employer], MEDICAL EQUIPMENT PROVIDER * List name and contact numbers for known caregivers / representatives who currently or will assist patient after discharge: Jamari SCHREIBER, * Verbal permission to speak to the caregivers and representatives has been obtained from the patient. N/A * Community resources currently utilized None * Please name any agencies selected above. NONE * Additional services required to return to the preadmission environment? No * Can the patient safely return to the preadmission environment? Yes * Has this patient been hospitalized within the prior 30 days at any hospital? No Coverage Notice Reviewer: [email or web address] Zenia Stringer Notice Issued Date-Time: 06/25/2018 14:35 Notice Type: IM Discharge Notice Notice Delivered To: Patient Relationship to Patient: Statement Processor Name: Delivery Method: HAND - Hand Delivered Brandi Days: Prior Verbal Notification: Recipient Understood Notice: Yes Recipient Signature: Yes Med Rec Note Co-signed by Attending: Coverage Notice Comment: Patient Name: LAZARO SUAREZ Page [phone] at 1729 All edits/amendments must be made on the electronic document DICTATION DATE: 06/25/181727 INVENTORY CONTROL CLERK: ADRIANA 06/25/181727 RPT#: [id number] DC DATE: STATUS: ADM IN [facility] [address] [place] [address] END OF REPORT
--- NOTE | 2018-07-06 13:28 | EC ---
PATIENT:LAZARO SUAREZ DATE OF SERVICE: 06/21/18 SEX: F MEDICAL RECORD: [id number] DATE OF : 38 LOCATION:D.M2 D.211 AGE OF PATIENT: 77 ADMISSION DATE: 06/21/18 REFERRING PHYSICIAN: INTERPRETING PHYSICIAN: ÁLVARO CAMERON MD ECHOCARDIOGRAM REPORT ECHO CHARGES 5 ECHO LIMITED Date: 06/21/18 CLINICAL DIAGNOSIS: HYPOTENSION, ECHOCARDIOGRAPHIC MEASUREMENTS (adult normal given) AC root (d.<3.7cm) cm LV Septum d (<1.2 cm> cm Valve Excursion cm LV Septum (systole) cm Left Atria (s.<4.0cm> cm LVPW d(<1.2cm) cm RV (d.<2.3cm) cm LVPW (sytole) cm LV diastole(<5.6CM) cm MV E-F(>70mm/sec) cm LV systole cm LVOT Diameter cm MV exc.(>10mm) cm Est.ejection fraction (50-75%) % DOPPLER: LVIT cm/sec A cm/sec E cm/sec LA cm/sec RVSP 20.7 mmHg LVOT cm/sec AOP1/2T m/s Asc. Ao cm/sec RVOT cm/sec RA cm/sec PA cm/sec AV Gradient Peak mmHg AV Mean mmHg AV Area cm MV Gradient Peak mmHg MV Mean mmHg MV Area cm COMMENTS: Airline Pilot: Colby KAYE Commissioned Defence Force Officer: Brian Cameron TAPE# PACS Pericardial Effusion Y DATE OF SERVICE: 06/21/2018 FINDINGS: 1. Left ventricular chamber size is within normal limits. Left ventricular systolic function is normal. Overall ejection fraction estimated at 60%. 2. Left atrium, right atrium, and right ventricle chamber sizes are within normal limits. 3. Valvular structures have normal structure and motion. 4. Doppler interrogation reveals no significant valvular insufficiency or stenosis. ECHOCARDIOGRAM REPORT [id number] LAZARO SUAREZ 5. Pericardial effusion is present. This is small to moderate, does not appear to be hemodynamically significant. TRANSINT:[id number] Voice Confirmation ID: [id number] DOCUMENT ID: [id number] ÁLVARO CAMERON MD at 1328 CC: [id number] DICTATION DATE: 06/21/18 6386 SPECIALTY FOODS COOK: 06/21/18 1207 DIS IN 06/25/18 [facility] [address] [place] [address]
--- NOTE | 2018-07-06 13:28 | EC ---
PATIENT:LAZARO SUAREZ DATE OF SERVICE: 06/21/18 SEX: F MEDICAL RECORD: [id number] DATE OF : 38 LOCATION:D. D.211 AGE OF PATIENT: 77 ADMISSION DATE: 06/21/18 REFERRING PHYSICIAN: INTERPRETING PHYSICIAN: ÁLVARO MARCUM MD ECHOCARDIOGRAM REPORT ECHO CHARGES 5 ECHO LIMITED Date: 06/22/18 CLINICAL DIAGNOSIS: PERICARDIAL FLUID ECHOCARDIOGRAPHIC MEASUREMENTS (adult normal given) AC root (d.<3.7cm) cm LV Septum d (<1.2 cm> cm Valve Excursion cm LV Septum (systole) cm Left Atria (s.<4.0cm> cm LVPW d(<1.2cm) cm RV (d.<2.3cm) cm LVPW (sytole) cm LV diastole(<5.6CM) cm MV E-F(>70mm/sec) cm LV systole cm LVOT Diameter cm MV exc.(>10mm) cm Est.ejection fraction (50-75%) % DOPPLER: LVIT cm/sec A cm/sec E cm/sec LA cm/sec RVSP 20.7 mmHg LVOT cm/sec AOP1/2T m/s Asc. Ao cm/sec RVOT cm/sec RA cm/sec PA cm/sec AV Gradient Peak mmHg AV Mean mmHg AV Area cm MV Gradient Peak mmHg MV Mean mmHg MV Area cm COMMENTS: Boom Boss: Colby KAYE Neonatal Icu Coordinator: 3 Dr. Palmer TAPE# PACS Pericardial Effusion Y DATE OF SERVICE: 06/21/2018 ECHOCARDIOGRAM Limited echocardiogram for evaluation of pericardial effusion. Pericardial effusion is present. It is unchanged. It is lnuz-ht-fdjhvshn. No evidence of right ventricular or right atrial collapse. TRANSINT:[id number] Voice Confirmation ID: [id number] DOCUMENT ID: [id number] ECHOCARDIOGRAM REPORT [id number] LAZARO SUAREZ ÁLVARO MARCUM MD at 1328 CC: [id number] DICTATION DATE: 06/23/18 1031 SHANK TURNER: 06/23/18 1056 DIS IN 06/25/18 [place] [id number]
--- NOTE | 2018-07-06 13:29 | DS ---
PATIENT:LAZARO GARCIA :[birth year] MEDICAL RECORD: [id number] DISCHARGE SUMMARY ADMISSION DATE: 06/21/18 DISCHARGE DATE: 06/25/18 DIAGNOSES: 1. Non-Q-wave myocardial infarction. 2. Coronary artery disease. 3. Percutaneous transluminal coronary angioplasty stent left anterior descending and diagonal. 4. Atrial fibrillation, paroxysmal. 5. Diarrhea. 6. Respiratory distress. HOSPITAL COURSE: Mrs. Garcia presents with a non-Q-wave myocardial infarction, found to have total occlusion of her RCA that could not be intervened and critical disease of the LAD and diagonal. She underwent successful PTCA stent of the LAD and diagonal. She went into atrial fibrillation afterwards. This led to respiratory distress. She had a drop in her hemoglobin and it was felt that she had a retroperitoneal bleed as well. Her hemoglobin was replaced. She was seen by pulmonary, with aggressive pulmonary treatments. Her respiratory distress resolved. She continued to have atrial fibrillation despite sotalol and digoxin. Echocardiogram revealed a pericardial effusion, it was small to moderate. Serial echocardiograms did not see an increase in the pericardial effusion. It was unknown if it was related to the acute intervention or if it was a preexisting. She was discharged home with the addition of Xarelto, Plavix, digoxin to her medical regimen. She is seen by GI an given Flagyl as well as an outpatient. We will follow up from a cardiac standpoint in 2 weeks. A decision on DC cardioversion will be made at that time. TRANSINT:[id number] Voice Confirmation ID: [id number] DOCUMENT ID: [id number] ÁLVARO MARCUM MD at 1329 CC: [id number] DICTATION DATE: 06/25/18 1319 PSYCHIATRIC LPN: 06/25/18 2348 DIS IN 06/25/18 [place] [id number]
== END 2018-06-25 18:11 | disposition home or self-care (01) | DRG 248 ==
LOC: D.ER 08:12 → D.CATH 08:12 → EDSTATUS 11:28 → D.ICU 15:11 → D.CATH 15:21 → D.M2 15:22 → D.ICU 15:22 → D.M2 06-23 12:49
PROVIDERS: Emergency Medicine; Internal Medicine Pulmonary Disease; Thoracic Surgery (Cardiothoracic Vascular Surgery); ADMIT Internal Medicine Interventional Cardiology
PROC: B2111ZZ Fluoroscopy of Multiple Coronary Arteries using Low Osmolar Contrast (ICD-10-PCS; 2018-06-21)
PROC: B2151ZZ Fluoroscopy of Left Heart using Low Osmolar Contrast (ICD-10-PCS; 2018-06-21)
PROC: 03H333Z Insertion of Infusion Device into Right Subclavian Artery, Percutaneous Approach (ICD-10-PCS; 2018-06-21)
PROC: 02713FZ Dilation of Coronary Artery, Two Arteries with Three Intraluminal Devices, Percutaneous Approach (ICD-10-PCS; principal; 2018-06-21 12:00)
PROC: 4A023N7 Measurement of Cardiac Sampling and Pressure, Left Heart, Percutaneous Approach (ICD-10-PCS; 2018-06-21 12:00)
DX: I21.4 Non-ST elevation (NSTEMI) myocardial infarction (principal); J96.01 Acute respiratory failure with hypoxia; J69.0 Pneumonitis due to inhalation of food and vomit; A41.9 Sepsis, unspecified organism; R65.21 Severe sepsis with septic shock; J98.11 Atelectasis; I31.3 Pericardial effusion (noninflammatory); I25.119 Atherosclerotic heart disease of native coronary artery with unspecified angina pectoris; K21.9 Gastro-esophageal reflux disease without esophagitis; E55.9 Vitamin D deficiency, unspecified; K83.8 Other specified diseases of biliary tract; I48.91 Unspecified atrial fibrillation; K57.90 Diverticulosis of intestine, part unspecified, without perforation or abscess without bleeding; D69.6 Thrombocytopenia, unspecified

== ENCOUNTER 2018-08-11 14:57 | Emergency (ER) | payer MEDICARE, BC ==
[~2018-08-11] VITALS: Ht 160 cm; Wt 67.7 kg
[~2018-08-11 14:57] MED LIST changes: +BETAPACE 120 M120 MG PO; +FLAGYL500 MG PO; +LANOXIN125 MCG PO; +PLAVIX75 MG PO; +XARELTO20 MG PO
[2018-08-11 15:00] VITALS: Ht 160 cm; Wt 67.7 kg
[2018-08-11] MEDS ORDERED: ZESTRIL10 MG PO (15:04)
[2018-08-11] MEDS ORDERED: FUROSEMIDE40 MG PO (15:05)
[2018-08-11 16:16] LABS: BASOPHILS 0.3 % (0-2); EOSINOPHILS 1.1 % (0-7); HEMATOCRIT 41.8 % (36.0-48.0); HEMOGLOBIN 13.5 g/dL (12-16); IMMATURE GRANULOCYTES 0.1 % (0-5); LYMPHOCYTES 11.3 % (15-50); MCH 29.1 pg (26.0-34.0); MCHC 32.3 g/dL (31.0-37.0); MCV 90.1 fL (80.0-100.0); MEAN PLATELET VOLUME 9.6 fL (7.4-10.4); MONOCYTES 6.2 % (2-11); PLATELET COUNT 132 10x3/uL (130-400); RBC 4.64 10x6/uL (4.00-5.40); RDW 15.5 % (11.5-14.5); WBC 7.1 10x3/uL (4.8-10.8)
[2018-08-11 16:47] LABS: ALBUMIN 3.5 g/dL (3.4-5.0); ALKALINE PHOSPHATASE 60 U/L (46-116); ALT (SGPT) 16 U/L (10-68); BILIRUBIN - TOTAL 0.65 mg/dL (0.2-1.3); CALC OSMOLALITY 283 mosm/kg (275-300); CALCIUM 9.3 mg/dL (8.5-10.1); CARBON DIOXIDE 25.2 mmol/L (21.0-32.0); CHLORIDE - SERUM 106 mmol/L (98-107); CREATININE - SERUM 0.8 mg/dL (0.6-1.3); GLUCOSE 88 mg/dL (74-106); POTASSIUM - SERUM 4.1 mmol/L (3.5-5.1); PROTEIN - SERUM 6.4 g/dL (6.4-8.2); SODIUM 143 mmol/L (136-145); UREA NITROGEN 13 mg/dL (7-18); eGFR NON AFRICAN AMERICAN 73 mL/min (90-120)
[2018-08-11 16:58] LABS: CKMB 0.8 U/L (0.0-3.6); CREATINE KINASE 39 UL (21-215); TROPONIN-I < 0.017 ng/mL (0.000-0.060)
[2018-08-11 17:52] VITALS: BP 135/69
== END 2018-08-11 17:53 | disposition home or self-care (01) ==
LOC: D.ER 14:57
PROVIDERS: Emergency Medicine
DX: R19.7 Diarrhea, unspecified (principal); R42 Dizziness and giddiness; R55 Syncope and collapse; I10 Essential (primary) hypertension

== ENCOUNTER 2018-10-20 14:51 | Inpatient (IN) | payer MEDICARE, BC ==
[~2018-10-20 14:51] MED LIST changes: +FUROSEMIDE40 MG PO; +ZESTRIL10 MG PO
[2018-10-20 15:46] LABS: BASOPHILS 1.1 % (0-2); EOSINOPHILS 2.2 % (0-7); LYMPHOCYTES 40.2 % (15-50); MCH 22.4 pg (26.0-34.0); MCHC 28.9 g/dL (31.0-37.0); MCV 77.6 fL (80.0-100.0); MEAN PLATELET VOLUME 9.1 fL (7.4-10.4); MONOCYTES 8.4 % (2-11); NEUTROPHILS 48.1 % (40-80); RBC 2.54 10x6/uL (4.00-5.40); RDW 17.5 % (11.5-14.5); WBC 3.6 10x3/uL (4.8-10.8)
[2018-10-20 16:00] VITALS: BP 124/57
[2018-10-20 16:00] LABS: INR 1.4 (0.85-1.17); PROTIME 16.6 SECONDS (11.6-15.0)
[2018-10-20 16:12] LABS: ALBUMIN 3.4 g/dL (3.4-5.0); ANION GAP 13.8 mmol/L (8-16); BILIRUBIN - TOTAL 0.22 mg/dL (0.2-1.3); CALCIUM 9.1 mg/dL (8.5-10.1); CARBON DIOXIDE 25.5 mmol/L (21.0-32.0); CREATININE - SERUM 0.8 mg/dL (0.6-1.3); POTASSIUM - SERUM 4.3 mmol/L (3.5-5.1); PROTEIN - SERUM 6.3 g/dL (6.4-8.2)
[2018-10-20 16:25] LABS: HEMATOCRIT 19.7 % (36.0-48.0); HEMOGLOBIN 5.7 g/dL (12-16); PLATELET COUNT 235 10x3/uL (130-400)
--- NOTE | 2018-10-20 16:45 | NUR ---
PT LYING IN BED. A/OX3. RESP EVEN/UNLABORED. SKIN W/D/AND PALE PINK. TALKATIVE AND SMILING. NO C/O. S/O AT BS
--- NOTE | 2018-10-20 17:04 | NUR ---
RCVD TC FROM , 3 UNITS OF BLOOD AVAILABLE. DR PAREKH NOTIFIED
[2018-10-20 18:20] VITALS: BP 122/53
--- NOTE | 2018-10-20 18:20 | NUR ---
BLOOD TRANSFUSION INITIATED TO RIGHT FA IV. FLUSHES EASILY. NO S/SX OF INFILTRATION AT SITE
--- NOTE | 2018-10-20 18:35 | NUR ---
ELLY BLOOD TRANSFUSION WELL. NO ADVERSE RXNS NOTED. VSS
[2018-10-20 18:38] VITALS: BP 130/59
--- NOTE | 2018-10-20 19:10 | NUR ---
REPORT TO GORDY BRADFORD
--- NOTE | 2018-10-20 19:26 | NUR ---
REPORT RECIVED FROM GORDY BENJAMIN. PT LYING IN BED WITH AT BEDSIDE. NO DISTRESS NOTED. PRBC'S INFUSING TO RIGHT FOREARM. NO S/S OF TRANSFUSION REACTION NOTED.
--- NOTE | 2018-10-20 19:46 | NUR ---
REPROT CALLED TO BAKARI ON MED III
[2018-10-20 20:00] VITALS: BP 126/53
--- NOTE | 2018-10-20 20:00 | NUR ---
PT ARRIVED TO FLOOR VIA WHEELCHAIR. AMBULATED TO BED WITHOUT DIFFICULTY. PT STATES SHE HAS BEEN HAVING DIZZINESS LATELY, TOLD PT TO CALL FOR ASSIST TO GO TO BATHROOM, PT VERBALIZED UNDERSTANDING. IV LEFT FA INFUSING PRBC @ 150. TOLERATING WELL. VSS. AT BEDSIDE. DENIES PAIN. CL IN REACH, WILL CONT TO MONITOR
--- NOTE | 2018-10-20 20:25 | NUR ---
BLOOD INFUSION STOPPED AT 1942 WHEN PT TRANSFERED TO ROOM 1212. NS INFUSION WITH BLOOD STOPPED AT 1942.
[2018-10-20 20:47] VITALS: BP 126/53; BMI 26.8
--- NOTE | 2018-10-20 21:00 | NUR ---
FIRST UNIT OF PRBC DONE. GAVE LASIX 20MG AND BEGAN SECOND UNIT PRBC.
[2018-10-21] VITALS (7 sets, daily range): BP systolic 92–145; BP diastolic 43–68; BMI 26.7
--- NOTE | 2018-10-21 00:30 | NUR ---
SECOND UNIT PRBC DONE. GAVE LASIX 20MG AND BEGAN THIRD UNIT PRBC. VSS. WILL CONT TO MONITOR
--- NOTE | 2018-10-21 04:00 | NUR ---
THIRD UNIT OF PRBC DONE. VSS. WILL CONT TO MONITOR
[2018-10-21 07:06] LABS: BASOPHILS 0.7 % (0-2); EOSINOPHILS 2.5 % (0-7); IMMATURE GRANULOCYTES 0.2 % (0-5); LYMPHOCYTES 29.7 % (15-50); MCH 25.7 pg (26.0-34.0); MCHC 32.2 g/dL (31.0-37.0); MEAN PLATELET VOLUME 9.3 fL (7.4-10.4); MONOCYTES 12.7 % (2-11); NEUTROPHILS 54.2 % (40-80); WBC 4.3 10x3/uL (4.8-10.8)
[2018-10-21 07:20] LABS: INR 1.26 (0.85-1.17); PROTIME 15.2 SECONDS (11.6-15.0)
[2018-10-21 07:27] LABS: ANION GAP 8.8 mmol/L (8-16); CALCIUM 9.4 mg/dL (8.5-10.1); CARBON DIOXIDE 29.8 mmol/L (21.0-32.0); CREATININE - SERUM 0.8 mg/dL (0.6-1.3); T4 THYROXIN - FREE 1.08 ng/dL (0.76-1.46); THYROID STIMULATING HORMONE 2.38 uIU/mL (0.36-3.74)
[2018-10-21 07:28] LABS: POTASSIUM - SERUM 3.6 mmol/L (3.5-5.1)
[2018-10-21 07:33] LABS: HEMATOCRIT 32.6 % (36.0-48.0); HEMOGLOBIN 10.5 g/dL (12-16); MCV 79.7 fL (80.0-100.0); PLATELET COUNT 177 10x3/uL (130-400); RBC 4.09 10x6/uL (4.00-5.40)
--- NOTE | 2018-10-21 07:35 | NUR ---
INITIAL ROUNDING ON THE PATIENT, SHE IS AWAKE AND RESTING IN THE BED. DENIES PAIN, CALL LIGHT IN REACH
--- NOTE | 2018-10-21 14:05 | NUR ---
HOME MEDICATION REVIEW WAS DONE 10/20/18
--- NOTE | 2018-10-21 17:17 | MORECARE ---
CASE MANAGEMENT DISCHARGE SUMMARY PATIENT: LAZARO SUAREZ UNIT: [id number] ADM DATE: 10/20/18 AGE: 77 : 39 SEX: F ROOM/BED: D.1212 AUTHOR: NIECY PERSON PHYSICIAN: REFERRING PHYSICIAN: RAFIA ANGLIN MD DATE OF SERVICE: 10/21/18 Discharge Plan Patient Name: LAZARO SUAREZ Facility: [facility]:[place] : 1940 Planned Disposition: Home Anticipated Discharge Date: Discharge Date: Expected LOS: Initial Reviewer: [email or web address] Initial Review Date: 10/21/2018 Generated: 10/21/18 6:16 pm Comments DCP- Discharge Planning Updated by [email or web address]: Estefania Byers on 10/21/18 4:[address] Patient Name: LAZARO SUAREZ Admission Status: ER Accout number: [id number] Admission Date: 10-20-2018 : 1940 Admission Diagnosis: Attending: RAFIA HARRIS Current LOS: 1 Anticipated DC Date: Planned Disposition: Home Primary Insurance: MEDICARE A & B Discharge Planning Comments: CM MET WITH PATIENT AND HER MARINA SUAREZ ABOUT DC PLANNING. PATIENT STATES SHE IS INDEPENDANT AND DENIES NEEDS AT THIS TIME. PATIENT STATES IS WAITING TO HAVE EGD DONE TODAY. CM WILL FOLLOW AND ASSIST NEEDED WITH DC PLANNING/NEEDS. Production Machine Tender: Estefania Byers DCPIA - Discharge Planning Initial Assessment Updated by [email or web address]: Estefania Byers on 10/21/18 5:10 pm * Is the patient Alert and Oriented? Yes * PCP BRENDA * Pharmacy [facility] [address] [place] * Preadmission Environment Home with Family * ADLs Independent * Other Equipment NONE * List name and contact numbers for known caregivers / representatives who currently or will assist patient after discharge: MARINA, , * Verbal permission to speak to the caregivers and representatives has been obtained from the patient. Yes * Community resources currently utilized None * Additional services required to return to the preadmission environment? No * Can the patient safely return to the preadmission environment? Yes * Has this patient been hospitalized within the prior 30 days at any hospital? No Patient Name: LAZARO SUAREZ Page [phone] at 1717 All edits/amendments must be made on the electronic document DICTATION DATE: 10/21/181715 METAL LEAF LAYER: ADRIANA 10/21/181715 RPT#: [id number] DC DATE: STATUS: ADM IN [facility] [address] [place] [address] END OF REPORT
--- NOTE | 2018-10-21 19:30 | NUR ---
PT IN PROCEDURE AT THIS TIME.
--- NOTE | 2018-10-21 23:17 | NUR ---
PT SITTING UP IN BED. CALL LIGHT IN REACH. VITALS WNL. PT STARTED ON BOWEL PREP FOR COLONOSCOPY TOMORROW. BSC AT BEDSIDE. BED IN LOW. WCTM
[2018-10-22] VITALS (14 sets, daily range): BP systolic 107–149; BP diastolic 62–75
--- NOTE | 2018-10-22 04:32 | NUR ---
PT HAD BOWEL MOVEMENT IN BSC. PT HAD A LITTLE ACCIDENT IN BED AND COULD NOT MAKE IT TO BSC IN TIME. CALL LIGHT IN REACH. BM WATERY. ENCOURAGED TO CONTINUE TO KEEP DRINKING PREP FOR COLONOSCOPY. WCTM
[2018-10-22 07:08] LABS: BASOPHILS 1.1 % (0-2); EOSINOPHILS 2.6 % (0-7); HEMATOCRIT 33.1 % (36.0-48.0); HEMOGLOBIN 10.5 g/dL (12-16); IMMATURE GRANULOCYTES 0.2 % (0-5); LYMPHOCYTES 33.8 % (15-50); MCH 25.5 pg (26.0-34.0); MCHC 31.7 g/dL (31.0-37.0); MCV 80.5 fL (80.0-100.0); MEAN PLATELET VOLUME 9.6 fL (7.4-10.4); MONOCYTES 9.9 % (2-11); NEUTROPHILS 52.4 % (40-80); PLATELET COUNT 196 10x3/uL (130-400); RBC 4.11 10x6/uL (4.00-5.40); RDW 16.6 % (11.5-14.5); WBC 4.6 10x3/uL (4.8-10.8)
[2018-10-22 07:32] LABS: ALBUMIN 3.2 g/dL (3.4-5.0); ALKALINE PHOSPHATASE 49 U/L (46-116); ALT (SGPT) 12 U/L (10-68); BILIRUBIN - TOTAL 0.66 mg/dL (0.2-1.3); CALC OSMOLALITY 284 mosm/kg (275-300); CALCIUM 9.4 mg/dL (8.5-10.1); CARBON DIOXIDE 26.9 mmol/L (21.0-32.0); CHLORIDE - SERUM 109 mmol/L (98-107); CREATININE - SERUM 0.7 mg/dL (0.6-1.3); GLUCOSE 81 mg/dL (74-106); MAGNESIUM - SERUM 2.4 mg/dL (1.8-2.4); PROTEIN - SERUM 5.9 g/dL (6.4-8.2); SODIUM 143 mmol/L (136-145); UREA NITROGEN 14 mg/dL (7-18); eGFR NON AFRICAN AMERICAN 86 mL/min (90-120)
--- NOTE | 2018-10-22 07:38 | NUR ---
PATIENT ASLEEP ON HER LEFT SIDE. 1/2 THE GOLYTELY STILL IN THE BOTTLE. PATIENT WAS WOKE AND INSTRUCTED ON THE ORDER TO FINISH THE GOLYTELY FOR THE PROCEDURE, TO HAVE STOOL BECOME CLEAR LIQUID. PATIENT AGREES TO DRINK AND PREPARE FOR THE TEST.
[2018-10-22] MEDS ORDERED: BAYER CHEWABLE81 MG PO (11:23)
[2018-10-22] MEDS ORDERED: AZOR 10-20 MG T1 TAB PO (11:23)
[2018-10-22] MEDS ORDERED: ACETAMINOPHEN325 MG PO (11:24)
--- NOTE | 2018-10-22 13:14 | NUR ---
HERE TO FLEET ADMINISTRATIVE ASSISTANT THE PATIENT FOR COLONOSCOPY, NO PRE MEDS ORDERED. NS SENT WITH PATIENT
--- NOTE | 2018-10-22 15:41 | NUR ---
SPOKE TO DR SANTOS, INFORMED HER OF THE CONSULT
--- NOTE | 2018-10-22 19:36 | NUR ---
PT LYING IN BED. CALL LIGHT IN REACH. IN ROOM. DENIES NEEDS OR PAIN AT THIS TIME. BED IN LOW SIDE RAILS X2. WCTM RESP EVEN AND UNLABORED.
[2018-10-23 00:01] VITALS: BP 129/62
--- NOTE | 2018-10-23 03:31 | NUR ---
PT RESTING QUIETLY. CALL LIGHT IN REACH. NO S/S OF DISTRESS OR PAIN. BED IN LOW. PT TAKES SELF TO BATHROOM. WCTM. RESP EVEN AND UNLABORED.
[2018-10-23 04:15] VITALS: BP 133/60
--- NOTE | 2018-10-23 05:25 | NUR ---
I have reviewed this patient and I concur with the Shift Assessment completed by the Licensed Practical Nurse today this shift.
[2018-10-23 06:02] LABS: BASOPHILS 0.5 % (0-2); EOSINOPHILS 2.2 % (0-7); HEMATOCRIT 32.7 % (36.0-48.0); HEMOGLOBIN 10.1 g/dL (12-16); IMMATURE GRANULOCYTES 0.2 % (0-5); LYMPHOCYTES 28.2 % (15-50); MCH 25.2 pg (26.0-34.0); MCHC 30.9 g/dL (31.0-37.0); MCV 81.5 fL (80.0-100.0); MEAN PLATELET VOLUME 9.2 fL (7.4-10.4); MONOCYTES 10.3 % (2-11); NEUTROPHILS 58.6 % (40-80); PLATELET COUNT 170 10x3/uL (130-400); RBC 4.01 10x6/uL (4.00-5.40); RDW 17.1 % (11.5-14.5); WBC 5.6 10x3/uL (4.8-10.8)
[2018-10-23 06:37] LABS: ALBUMIN 2.9 g/dL (3.4-5.0); ALKALINE PHOSPHATASE 48 U/L (46-116); ALT (SGPT) 11 U/L (10-68); BILIRUBIN - TOTAL 0.49 mg/dL (0.2-1.3); CALC OSMOLALITY 283 mosm/kg (275-300); CHLORIDE - SERUM 110 mmol/L (98-107); CREATININE - SERUM 0.7 mg/dL (0.6-1.3); GLUCOSE 80 mg/dL (74-106); MAGNESIUM - SERUM 2.1 mg/dL (1.8-2.4); POTASSIUM - SERUM 3.5 mmol/L (3.5-5.1); PROTEIN - SERUM 5.4 g/dL (6.4-8.2); SODIUM 143 mmol/L (136-145); UREA NITROGEN 13 mg/dL (7-18); eGFR NON AFRICAN AMERICAN 86 mL/min (90-120)
--- NOTE | 2018-10-23 07:55 | NUR ---
ASSESSMENT COMPLETE. NO IV ACCESS. RESTAURANT DISTRICT MANAGER SHOWING SR 62 PER TECH. DENIES ANY NEEDS AT THIS TIME. WANTING TO GO HOME TODAY.
[2018-10-23 08:39] VITALS: BP 132/53
[2018-10-23 12:26] VITALS: BMI 26.7
--- NOTE | 2018-10-23 14:09 | NUR ---
PT LEAVING AT THIS TIME VIA WHEELCHAIR VIA HOSPITAL STAFF, IN STABLE CONDTION DC INSTRUCTIONS GIVEN PT VERBALIZES UNDERSTANDING FAMILY AT BEDSIDE
--- NOTE | 2018-10-23 15:11 | MORECARE ---
CASE MANAGEMENT DISCHARGE SUMMARY PATIENT: LAZARO SUAREZ UNIT: [id number] ADM DATE: 10/20/18 AGE: 77 : 39 SEX: F ROOM/BED: D.1212 AUTHOR: RAZA,DOC PHYSICIAN: REFERRING PHYSICIAN: RAFIA ANGLIN MD DATE OF SERVICE: 10/23/18 Discharge Plan Patient Name: LAZARO SUAREZ Facility[facility]:[place] : 1940 Planned Disposition: Home Anticipated Discharge Date: Discharge Date: 10/23/2018 Expected LOS: Initial Reviewer: [email or web address] Initial Review Date: 10/21/2018 Generated: 10/23/18 4:10 pm DCP- Discharge Planning Updated by [email or web address]: Estefania Byers on 10/21/18 4:[address] Patient Name: LAZARO SUAREZ Admission Status: ER Accout number: [id number] Admission Date: 10-20-2018 : 1940 Admission Diagnosis: Attending: RAFIA HARRIS Current LOS: 1 Anticipated DC Date: Planned Disposition: Home Primary Insurance: MEDICARE A & B Discharge Planning Comments: CM MET WITH PATIENT AND HER MARINA SUAREZ ABOUT DC PLANNING. PATIENT STATES SHE IS INDEPENDANT AND DENIES NEEDS AT THIS TIME. PATIENT STATES IS WAITING TO HAVE EGD DONE TODAY. CM WILL FOLLOW AND ASSIST NEEDED WITH DC PLANNING/NEEDS. Mill Recorder: Estefania Byers DCPIA - Discharge Planning Initial Assessment Updated by [email or web address]: Estefania Byers on 10/21/18 5:10 pm * Is the patient Alert and Oriented? Yes * PCP BRENDA * [facility] [place] * Preadmission Environment Home with Family * ADLs Independent * Other Equipment NONE * List name and contact numbers for known caregivers / representatives who currently or will assist patient after discharge: MARINA, , * Verbal permission to speak to the caregivers and representatives has been obtained from the patient. Yes * Community resources currently utilized None * Additional services required to return to the preadmission environment? No * Can the patient safely return to the preadmission environment? Yes * Has this patient been hospitalized within the prior 30 days at any hospital? No Coverage Notice Reviewer: [id number] Zenia Arana Notice Issued Date-Time: 10/23/2018 12:30 Notice Type: IM Discharge Notice Notice Delivered To: Patient Relationship to Patient: Self Office Cleaner Name: Delivery Method: HAND - Hand Delivered Brandi Days: Prior Verbal Notification: Recipient Understood Notice: Yes Recipient Signature: Yes Med Rec Note Co-signed by Attending: Coverage Notice Comment: Last DP export: 10/21/18 4:16 pm Patient Name: LAZARO SUAREZ Page 91768 at 1511 All edits/amendments must be made on the electronic document DICTATION DATE: 10/23/18 151 CHUCKING AND BORING MACHINE OPERATOR: ADRIANA 10/23/18 1510 RPT#: [id number] DC DATE:10/23/18 STATUS: DIS IN [facility] [address] [place] [address] END OF REPORT
== END 2018-10-23 14:40 | disposition home or self-care (01) | DRG 377 ==
LOC: D.ER 14:51 → D.EDHOLD 17:56 → D.M3 17:56
PROVIDERS: Emergency Medicine; Family Medicine; Internal Medicine Gastroenterology; ADMIT Family Medicine Adult Medicine; ATTEND Family Medicine Adult Medicine
PROC: 0DB68ZX Excision of Stomach, Via Natural or Artificial Opening Endoscopic, Diagnostic (ICD-10-PCS; 2018-10-22)
PROC: 0DB48ZX Excision of Esophagogastric Junction, Via Natural or Artificial Opening Endoscopic, Diagnostic (ICD-10-PCS; 2018-10-22)
PROC: 0DBP8ZZ Excision of Rectum, Via Natural or Artificial Opening Endoscopic (ICD-10-PCS; 2018-10-22)
PROC: 0DB98ZX Excision of Duodenum, Via Natural or Artificial Opening Endoscopic, Diagnostic (ICD-10-PCS; principal; 2018-10-22 13:00)
DX: K55.21 Angiodysplasia of colon with hemorrhage (principal); E43 Unspecified severe protein-calorie malnutrition; D50.9 Iron deficiency anemia, unspecified; D72.819 Decreased white blood cell count, unspecified; I25.10 Atherosclerotic heart disease of native coronary artery without angina pectoris; I10 Essential (primary) hypertension; K22.8 Other specified diseases of esophagus; K29.00 Acute gastritis without bleeding; K44.9 Diaphragmatic hernia without obstruction or gangrene; K31.7 Polyp of stomach and duodenum; K57.30 Diverticulosis of large intestine without perforation or abscess without bleeding; K62.1 Rectal polyp; I48.2 Chronic atrial fibrillation; Z79.01 Long term (current) use of anticoagulants; Z68.26 Body mass index [BMI] 26.0-26.9, adult

== ENCOUNTER 2018-11-04 17:50 | Observation (INO) | payer MEDICARE, BC ==
[~2018-11-04] VITALS: Ht 160 cm; Wt 65.5 kg
--- NOTE | ~2018-11-04 | HEMODYNAMI ---
PATIENT:LAZARO SUAREZ MEDICAL RECORD: [id number] : 38 [facility] [id number] ADMISSION DATE: 11/04/18 Generatedon:11/05/201811:26 Patient name: LAZARO SUAREZ Patient #: [id number] SSN: : 1940 Date of study: 11/05/2018 Page: Of Hemodynamic Procedure Report Patient Data Patient Demographics Procedure consent was obtained First Name: LAZARO Gender: Female Last Name: DANIELA : 1940 [facility] Initial: S Age: 77 year(s) Patient #: [id number] Race: Unknown Additional ID: [id number] Contact details Address: [address] [place] [address] TRAIL State: [place] City: [facility] Zip code: [address] Past Medical History Allergies: No known allergies Admission Admission Data Admission Date: 11/04/2018 Admission Time: 19:21 Room #: [facility]5 Height (in.): 62.99 BSA: 1.68 (m2) Height (cm.): 160 BMI: 25.39 (kg/m2) Weight (lbs.): 143.3 Weight (kg.): 65 Procedure Procedure Types Cath Procedure Diagnostic Procedure [facility] w/Coronaries Sedation Charges Moderate Sedation up to 15 minutes Procedure Description Procedure Date Procedure Date: 11/05/2018 Procedure Start Time: 11:06 Procedure End Time: 11:20 Procedure Staff Name Function Preet Bruno MD Performing Physician Leyda Estrella RT Monitor Alcira Marin RT Scrub Burton Solano RN Nurse Procedure Data Cath Procedure Fluoroscopy Diagnostic fluoroscopy Total fluoroscopy Time: 1.5 time: 1.5 min min Diagnostic fluoroscopy Total fluoroscopy dose: 490 dose: 490 mGy mGy Contrast Material Contrast Material Type Amount (ml) Isovue 300 54 Entry Location Entry Primary Successful Side Size Upsize Upsize Entry Closure Succes sful Closure Location (Fr) 1 (Fr) 2 (Fr) Remarks Device Remarks Femoral Right 5 Fr Exoseal artery Estimated blood loss: 10 ml Diagnostic catheters Device Type Used For End Catheter Placement MULTIPACK JL 4.0 5Fr Procedure catheter MULTIPACK 3DRC 5Fr Procedure catheter MULTIPACK Pigtail 5 Fr Procedure catheter Procedure Complications No complications Procedure Medications Medication Administration Route Dosage Oxygen etCO2 Nasal cannula 2 l/min Heparin Flush Bag added to field 2 bags (1000units/500ml NS) 0.9% NaCl I.V. 100 ml/hr Lidocaine 2% added to field 20 Fentanyl I.V. 50 mcg Versed I.V. 1 mg Fentanyl I.V. 50 mcg Versed I.V. 1 mg Hemodynamics Rest BSA: 1.68 (m2) O2 Consumption: Estimated: 137.9 (ml/min) O2 Consumption indexed: Estimated:82.08 (ml/min/m) Heart Rate: 48 (bpm) Pressure Samples Time Site Value (mmHg) Purpose Heart Use Rate(bpm) 11:15 LV 115/1,11 Snapshot 63 Snapshots Pre Cath Intra NCS Post Cath Vital Signs Time Heart Resp SPO2 etCO2 NIBP Rhythm Pain Sedation Rate (ipm) (%) (mmHg) (mmHg) Status Level (bpm) 10:50:41 55 16 100 17.2 144/62(85) NSR 0 (11) 10(A) , No pain 10:55:48 51 16 98 37.4 124/59(92) NSR 0 (11) 10(A) , No pain 10:59:58 49 16 100 38.1 123/65(97) NSR 0 (11) 10(A) , No pain 11:04:10 52 17 98 19.4 124/62(79) NSR 0 (11) 9(A) , No pain 11:08:24 54 17 99 19.4 128/58(81) NSR 0 (11) 9(A) , No pain 11:12:40 61 16 95 33.7 120/51(89) NSR 0 (11) 9(A) , No pain 11:16:52 60 17 97 28.4 111/56(82) NSR 0 (11) 9(A) , No pain 11:21:12 55 16 99 39.6 119/53(89) NSR 0 (11) 9(A) , No pain Medications Time Medication Route Dose Verified Delivered Reason Notes Effe ctiveness by by 10:55:22 Oxygen etCO2 2 Preetmario Manrique Per Nasal l/min Bruno MD Solano RN physician cannula 10:55:28 Heparin Flush added 2 Preet Burton used for Bag to bags Damion Solano oxygen furnace operator (1000units/500ml field NS) 10:56:06 0.9% NaCl I.V. 100 Preet Burton Per ml/hr Damion Solano RN physician 10:56:14 Lidocaine 2% added 20ml Preet Burton used for to vial Damion Solano RN procedure field 10:59:06 Fentanyl I.V. 50 Preet Burton for mcg Damion Solano RN sedation 10:59:13 Versed I.V. 1 mg Preet Burton for Damion Solano RN sedation 11:06:56 Fentanyl I.V. 50 Preet Burton for mcg Damion Solano RN sedation 11:07:00 Versed I.V. 1 mg Preet Burton for Damion Solano RN sedation Procedure Log Time Note 10:30:46 Burton Solano RN sent for patient. Start room use. 10:32:19 Signed procedure consent form obtained from patient. 10:32:20 Time tracking: Regular hours (M-F 7:00 - 5:00) 10:32:24 Plan of Care:Hemodynamics will remain stable., Cardiac rhythm will remain stable., Comfort level will be maintained., Respiratory function will remain adequate., Patient/ family verbilizes understanding of procedure., Procedure tolerated without complication., Recovers from procedure without complications.. 10:32:26 Diagnostic Cath status Urgent 10:33:27 Patient Weight : 143.3 lbs 10:33:30 Patient Height : 62.99 inches 10:33:42 Patient allergic to No known allergies 10:43:21 Patient received from Med II to CCL 2 Alert and oriented. Tansferred to table in Supine position. 10:43:22 Warm blankets applied, and christine hugger turned on for patient comfort. 10:43:22 Correct patient and procedure confirmed by team. 10:43:23 ECG and BP/O2 sat monitors applied to patient. 10:49:20 Vital chart was started 10:49:51 Baseline sample Acquired. 10:49:53 Rhythm: sinus bradycardia 10:49:54 Full Disclosure recording started 10:49:55 Pre-procedure instructions explained to patient. 10:49:55 Pre-op teaching completed and patient verbalized understanding. 10:49:57 Family in patients room. 10:49:58 Patient NPO since Midnight. 10:50:00 Is patient on blood thinner?Yes 10:50:05 ACC The patient was administered the following blood thiners within the last 24 hours: Xarelto 10:50:23 XARELTO HELD SINCE THURSDAY 10:50:24 Patient diabetic? No. 10:50:26 Patient not . Patient is over age 55. 10:50:29 Previous problem with sedation/anesthesia? No ? 10:50:33 Snore? Yes 10:50:34 Sleep apnea? No 10:50:35 Deviated septum? No 10:50:39 Opens mouth fully? Yes 10:50:39 Sticks out tongue? Yes 10:50:41 Airway obstruction? No ? 10:50:43 Dentures? Yes ? 10:50:46 Pre procedure: right dorsailis pedis pulse 2+ Normal; easily identifiable; not easily obliterated 10:55:22 Oxygen 2 l/min etCO2 Nasal cannula was administered by Burton Solano RN; Per physician; 10:55:28 Heparin Flush Bag (1000units/500ml NS) 2 bags added to field was administered by Burton Solano RN; used for procedure; 10:56:06 0.9% NaCl 100 ml/hr I.V. was administered by Burton Solano RN; Per physician; 10:56:08 Patient pain scale 0/10 ?. 10:56:14 Lidocaine 2% 20ml vial added to field was administered by Burton Solano RN; used for procedure; 10:56:17 IV left hand D/C'd due to site irritation. 10:56:27 IV started by Burton Solano RN inright hand with a 22 gauge IV catheter with 0.9% NaCl at KVO. 10:56:29 Lab results completed and on chart. 10:56:32 Right groin area was prepped with chlora-prep and draped in sterile fashion 10:56:33 Alarms reviewed by R. N. 10:56:33 Sharps counted by scrub and verified by R.N. 10:56:35 Use device set Femoral Dx 10:56:36 ACIST Syringe (19660) opened to sterile field. 10:56:37 Bag Decanter (2002S) opened to sterile field. 10:56:38 ACIST Manifold (23887) opened to sterile field. 10:56:39 ACIST Hand Control (20056) opened to sterile field. 10:56:39 Tegaderm 4 x 4 (1626W) opened to sterile field. 10:56:40 Medline Cath Pack ([id number]) opened to sterile field. 10:56:41 DIAGNOSTIC WIRE .035 260cm J wire (090563) opened to sterile field. 10:56:42 DIAGNOSTIC Multipack 5Fr catheter set (QV4494) opened to sterile field. 10:56:42 SHEATH 5FR Gallant (CCA825) opened to sterile field. 10:58:31 --------ALL STOP TIME OUT------ 10:58:32 Final Timeout: patient, procedure, and site verified with staff and physician. All members of the team are in agreement. 10:58:33 Right groin site verified by team. 10:58:35 Maximum allowable Isovue 300 dose 300ml. Physician notified. (300ml for normal creatinines. For patients with creatinine of 1.7 or higher multiply weight(kg) x 5 divided by creatinine.) 10:58:38 Fire Safety Assessment: A--An alcohol-based skin anteseptic being used preoperatively., C--Open oxygen or nitrous oxide is being used., D--An ESU, laser, or fiber-optic light is being used. 10:58:40 Physical assessment completed. ASA score P 2 - A patient with mild systemic disease as per Preet Bruno MD. 10:58:44 Sedation plan: IV Moderate Sedation Medication:Versed, Fentanyl 10:59:06 Fentanyl 50 mcg I.V. was administered by Burton Solano RN; for sedation; 10:59:13 Versed 1 mg I.V. was administered by Burton Solano RN; for sedation; 11:06:26 Procedure started. 11:06:33 Local anesthetic to right femoral artery with Lidocaine 2% by Preet Bruno MD.INITIAL ACCESS ONLY 11:06:56 Fentanyl 50 mcg I.V. was administered by Burton Solano RN; for sedation; 11:07:00 Versed 1 mg I.V. was administered by Burton Solano RN; for sedation; 11:08:22 A 5 Fr sheath was inserted into the Right Femoral artery 11:08:39 A MULTIPACK JL 4.0 5Fr catheter was advanced over the wire and used for Procedure. 11:10:26 LCA angiography performed. 11:10:57 Catheter exchanged over wire. 11:11:16 A MULTIPACK 3DRC 5Fr catheter was advanced over the wire and used for Procedure. 11:14:06 RCA angiography performed. 11:14:07 Catheter exchanged over wire. 11:15:05 A MULTIPACK Pigtail 5 Fr catheter was advanced over the wire and used for Procedure. 11:15:28 LV gram done using DEL CASTILLO 11:15:31 Injector settings: Ml/sec: 10, Volume: 20, 11:16:53 LV hemodynamics recorded. 11:17:01 EF : 45 % 11:17:02 Catheter removed. 11:17:04 EXOSEAL 5Fr (EX500) opened to sterile field. 11:17:51 Sheath removed intact; hemostasis achieved with Exoseal to the Right Femoral artery. 11:18:28 Procedure ended.(Physican Out) 11:18:38 Fluoroscopy time 01.50 minutes. 11:18:42 Flurop Dose total: 490 11:18:42 Fluoroscopy dose: 490 mGy 11:18:46 Contrast amount:Isovue 300 54ml. 11:18:48 Sharps counted by scrub and verified by R.N. 11:18:50 Post-op/insertion site Right Femoral artery dressed using a 4 x 4 and Tegaderm. 11:18:53 Post-procedure physical assessment completed. ASA score P 2 - A patient with mild systemic disease as per Preet Bruno MD. 11:18:55 Post procedure rhythm: sinus rhythm 11:18:58 Estimated blood loss: 10 ml 11:18:59 Post procedure instruction explained to patient.Patient verbalizes understanding. 11:19:02 Patient needs reinforcement of post procedure teaching. 11:19:20 Procedure type changed to Cath procedure, Diagnostic procedure, LHC, LHC w/Coronaries, Sedation Charges, Moderate Sedation up to 15 minutes 11:19:37 Procedure and supply charges have been captured, reviewed, submitted and are correct. 11:19:48 Procedure Complication : No complications 11:19:50 Vital chart was stopped 11:19:53 Report given to Med II. 11:19:57 Patient transfered to [facility] with Bed. 11:19:58 See physician's report for complete and final results. 11:20:00 Procedure ended. 11:20:00 Full Disclosure recording stopped 11:20:05 End room use (Document Last) Device Usage Item Name Manufacture Quantity Catalog Hospital Part Current Minimal L ot# / Number Charge Number Stock Stock Serial# Code ACIST Acist 1 57812 671839 224562 448971 20 Syringe Medical (57233) Systems Inc Bag Microtek 1 2001S 779831 82449 683779 5 Decanter Medical Inc. () ACIST Acist 1 90064 742440 445791 472988 5 Manifold Medical (71412) Systems Inc ACIST Hand Acist 1 14327 663384 627222 426274 5 Control Medical (21168) Systems Inc Tegaderm 4 3M 1 1626W 261804 076399 717633 5 x 4 (1626W) Medline Medline 1 [id number] 124229 18215 773850 5 Cath Pack ([id number]) DIAGNOSTIC [facility] 1 197220 214105 479668 047176 30 WIRE .035 260cm J wire (818759) DIAGNOSTIC Cardinal 1 CW3855 545148 86952 056991 30 Multipack Health 5Fr catheter set (YS9688) SHEATH 5FR Terumo 1 FUO825 532285 955639 394612 5 Gallant (NTY568) MULTIPACK Cardinal 1 740344 5 JL 4.0 5Fr Health catheter MULTIPACK Cardinal 1 650628 5 3DRC 5Fr Health catheter MULTIPACK Cardinal 1 532563 5 Pigtail 5 Health Fr catheter EXOSEAL 5Fr Cardinal 1 EX500 461453 907690 399587 10 (EX500) Health Signature Audit [place] Stage Time Signature Unsigned Intra-Procedure 11/05/2018 Leyda Estrella 11:25:58 AM RT(R) Signatures Monitor : Leyda Estrella Signature : RT Date : Time : [address] [address]
[~2018-11-04 17:50] MED LIST changes: +ACETAMINOPHEN325 MG PO; +AZOR 10-20 MG T1 TAB PO
[2018-11-04] MEDS ORDERED: BETAPACE 120 M120 MG PO (17:53)
[2018-11-04] MEDS ORDERED: LISINOPRIL10 MG PO (17:53)
[2018-11-04] MEDS ORDERED: LASIX20 MG PO (17:54)
[2018-11-04 18:34] LABS: HEMATOCRIT 36.1 % (36.0-48.0); HEMOGLOBIN 11.1 g/dL (12-16); IMMATURE GRANULOCYTES 0.3 % (0-5); LYMPHOCYTES 28.4 % (15-50); MCH 25.2 pg (26.0-34.0); MCHC 30.7 g/dL (31.0-37.0); MCV 81.9 fL (80.0-100.0); MEAN PLATELET VOLUME 9.3 fL (7.4-10.4); MONOCYTES 9.8 % (2-11); NEUTROPHILS 57.5 % (40-80); RBC 4.41 10x6/uL (4.00-5.40); RDW 17.9 % (11.5-14.5); WBC 6.3 10x3/uL (4.8-10.8)
[2018-11-04 18:48] LABS: PLATELET COUNT 269 10x3/uL (130-400)
[2018-11-04 18:50] LABS: ALBUMIN 3.5 g/dL (3.4-5.0); ALKALINE PHOSPHATASE 60 U/L (46-116); ALT (SGPT) 16 U/L (10-68); BILIRUBIN - TOTAL 0.25 mg/dL (0.2-1.3); CALC OSMOLALITY 286 mosm/kg (275-300); CALCIUM 9.6 mg/dL (8.5-10.1); CARBON DIOXIDE 30.4 mmol/L (21.0-32.0); CHLORIDE - SERUM 107 mmol/L (98-107); CREATININE - SERUM 1.1 mg/dL (0.6-1.3); GLUCOSE 99 mg/dL (74-106); POTASSIUM - SERUM 4.6 mmol/L (3.5-5.1); PROTEIN - SERUM 6.3 g/dL (6.4-8.2); SODIUM 143 mmol/L (136-145); UREA NITROGEN 19 mg/dL (7-18); eGFR NON AFRICAN AMERICAN 51 mL/min (90-120)
[2018-11-04 19:17] LABS: CKMB 1.2 U/L (0.0-3.6); CREATINE KINASE 40 UL (21-215)
[2018-11-04 19:24] LABS: TROPONIN-I 0.124 ng/mL (0.000-0.060)
[2018-11-04 20:00] VITALS: BP 139/57
[2018-11-04 22:19] VITALS: BP 139/57; BMI 25.4
[2018-11-05] VITALS: BP 117/50
[2018-11-05 02:40] LABS: BASOPHILS 0.5 % (0-2); EOSINOPHILS 2.7 % (0-7); HEMATOCRIT 34.6 % (36.0-48.0); HEMOGLOBIN 10.5 g/dL (12-16); IMMATURE GRANULOCYTES 0.3 % (0-5); LYMPHOCYTES 41.9 % (15-50); MCH 25.1 pg (26.0-34.0); MCHC 30.3 g/dL (31.0-37.0); MCV 82.8 fL (80.0-100.0); MONOCYTES 8.6 % (2-11); PLATELET COUNT 243 10x3/uL (130-400); RBC 4.18 10x6/uL (4.00-5.40); RDW 18.1 % (11.5-14.5); WBC 6.4 10x3/uL (4.8-10.8)
[2018-11-05 03:03] LABS: ALKALINE PHOSPHATASE 48 U/L (46-116); BILIRUBIN - TOTAL 0.34 mg/dL (0.2-1.3); CALC OSMOLALITY 288 mosm/kg (275-300); CARBON DIOXIDE 27.5 mmol/L (21.0-32.0); CHLORIDE - SERUM 110 mmol/L (98-107); CKMB 25.7 U/L (0.0-3.6); CREATINE KINASE 164 UL (21-215); GLUCOSE 90 mg/dL (74-106); PROTEIN - SERUM 5.6 g/dL (6.4-8.2); SODIUM 144 mmol/L (136-145); UREA NITROGEN 17 mg/dL (7-18)
[2018-11-05 03:09] LABS: ALT (SGPT) 11 U/L (10-68); CREATININE - SERUM 0.7 mg/dL (0.6-1.3); eGFR NON AFRICAN AMERICAN 86 mL/min (90-120)
[2018-11-05 04:00] VITALS: BP 147/67
[2018-11-05 07:46] VITALS: BP 133/65
--- NOTE | 2018-11-05 08:30 | NUR ---
CONSENTS SIGNED FOR [facility]. WILL CONT. PLAN OF CARE.
[2018-11-05 10:29] VITALS: Ht 160 cm; Wt 65.5 kg
--- NOTE | 2018-11-05 10:39 | NUR ---
PRE-OPS GIVEN. TO TENDER LABOR BY BED.
--- NOTE | 2018-11-05 11:43 | NUR ---
BACK FROM TRUCK BODY BUILDER. VS WNL. RIGHT GROIN STABLE WITHOUT BLEEDING OR HEMATOMA NOTED. WILL MONITOR.
--- NOTE | 2018-11-05 13:33 | NUR ---
BED REST UP. GROIN STABLE.
[2018-11-05 15:10] VITALS: BP 124/63
--- NOTE | 2018-11-05 15:22 | NUR ---
UP AMBULATING HALLWAY WITH REGISTRATION REPRESENTATIVE ASSIST.
[2018-11-05 20:00] VITALS: BP 111/57
--- NOTE | 2018-11-05 20:00 | NUR ---
INITIAL ROUNDS AND ASSESSMENT COMPLETED. PT ALERT/ORIENTED. AD PETRA IN ROOM. SR PER TELEMETRY. SALINE LOCK TO LEFT HAND. RIGHT GROIN WITH DRESSING C/D/I. NO SWELLING/BRUISING OR BLEEDING NOTED. PT STATES SHE FEELS "SO MUCH BETTER". MONITOR AND CPOC.
--- NOTE | 2018-11-05 21:40 | NUR ---
BEDTIME MEDS GIVEN. PT EDUCATION ON MEDS GIVEN AND DOSAGES. MONITOR AND CPOC.
[2018-11-06] VITALS: BP 102/41
[2018-11-06 04:51] LABS: BASOPHILS 0.5 % (0-2); EOSINOPHILS 3.4 % (0-7); HEMATOCRIT 33.7 % (36.0-48.0); HEMOGLOBIN 10.2 g/dL (12-16); IMMATURE GRANULOCYTES 0.2 % (0-5); LYMPHOCYTES 31.5 % (15-50); MCH 24.9 pg (26.0-34.0); MCHC 30.3 g/dL (31.0-37.0); MCV 82.4 fL (80.0-100.0); MEAN PLATELET VOLUME 9.2 fL (7.4-10.4); NEUTROPHILS 54.4 % (40-80); PLATELET COUNT 223 10x3/uL (130-400); RBC 4.09 10x6/uL (4.00-5.40); WBC 5.6 10x3/uL (4.8-10.8)
[2018-11-06 05:43] LABS: CALC OSMOLALITY 286 mosm/kg (275-300); CARBON DIOXIDE 25.4 mmol/L (21.0-32.0); CHLORIDE - SERUM 111 mmol/L (98-107); CREATININE - SERUM 0.6 mg/dL (0.6-1.3); GLUCOSE 86 mg/dL (74-106); SODIUM 144 mmol/L (136-145); UREA NITROGEN 14 mg/dL (7-18); eGFR NON AFRICAN AMERICAN > 90 mL/min (90-120)
[2018-11-06 05:52] LABS: TROPONIN-I 2.564 ng/mL (0.000-0.060)
--- NOTE | 2018-11-06 07:30 | NUR ---
RECEIVED PT IN BED EYES CLOSED RESP UNLABORED SKIN W/D COLOR WNL NAD NOTED
[2018-11-06 08:53] VITALS: BP 140/68
[2018-11-06] MEDS ORDERED: ISOSORBIDE MONO30 M1 PO (12:39)
[2018-11-06] MEDS ORDERED: BETAPACE 120 M120 MG PO (12:39)
[2018-11-06 13:11] VITALS: BP 111/64
--- NOTE | 2018-11-06 14:15 | NUR ---
REVIEWED DISCHARGE INSTRUCTIONS PT STATES UNDERSTANDING COPY GIVEN DCD SALINE LOCK TO LT HAND WITH IV CATHETER INTACT SITE FREE OF REDNESS OR EDEMA PT DISCHARGED HOME INSTABLE CONDITION VIA W/C WITH ALL PERSONAL BELONGINGS
--- NOTE | 2018-11-06 17:20 | NUR ---
ACCESSED PT CHART PER PT REQUEST DUE TO CONFUSION WITH DISCHARGE MEDICATIONS
--- NOTE | 2018-11-08 08:27 | MORECARE ---
CASE MANAGEMENT DISCHARGE SUMMARY PATIENT: LAZARO SUAREZ UNIT: [id number] ADM DATE: 11/04/18 AGE: 77 : 39 SEX: F ROOM/BED: D.0882 AUTHOR: NIECY PERSON PHYSICIAN: REFERRING PHYSICIAN: SUGAR DEVINE MD DATE OF SERVICE: 11/08/18 Discharge Plan Patient Name: [facility]O SUAREZ [facility] [facility] 1940 Planned Disposition: Home Anticipated Discharge Date: 11/06/18 Discharge Date: 11/06/2018 Expected LOS: 2 Initial Reviewer: [id number] Initial Review Date: 11/08/2018 Generated: 11/08/18 9:26 am Patient Name: LAZARO SUAREZ Page 88914 at 0827 All edits/amendments must be made on the electronic document DICTATION DATE: 11/08/18825 COMMUNITY PHARMACIST: ADRIANA 11/08/18825 RPT#: [id number] DC DATE:11/06/18 STATUS: DIS IN [facility] [address] [facility] [place] [address] END OF REPORT
== END 2018-11-06 14:15 | disposition home or self-care (01) ==
LOC: D.ER 17:50 → OBSVTIME 19:21 → D.M2 19:21
PROVIDERS: Family Medicine; ADMIT Emergency Medicine; ATTEND Emergency Medicine
DX: I21.4 Non-ST elevation (NSTEMI) myocardial infarction (principal); I25.10 Atherosclerotic heart disease of native coronary artery without angina pectoris; I10 Essential (primary) hypertension; I48.91 Unspecified atrial fibrillation; Z87.891 Personal history of nicotine dependence; D64.9 Anemia, unspecified